=== PATIENT | female | born 1950 | race Caucasian/White ===

== ENCOUNTER 2025-02-01 11:09 | Outpatient (AMB) | payer MEDICARE, OTHER, SELFPAY ==
--- NOTE | 2025-02-01 11:13 | MHC.OFFVIS ---
Vital Signs 02/01/25 11:14 Height 4 ft 11 in Intake Visit Reasons: 6 mnts BFT Allergies acetaminophen (From Percocet) Allergy (Unknown, Verified 02/01/25 11:17) Unknown oxycodone (From Percocet) Allergy (Unknown, Verified 02/01/25 11:17) Unknown Penicillins Allergy (Unknown, Verified 02/01/25 11:17) Unknown Medication List - Last Reconciled 02/01/25 by Aline Najera CNP anastrozole 1 mg PO DAILY bupropion HCl XL 300 mg PO DAILY fluoxetine 40 mg PO DAILY fluticasone furoate-vilanterol 100-25 mcg/dose (Breo Ellipta) 1 ea inhalation DAILY levothyroxine 50 mcg PO DAILY lorazepam 0.5 mg PO BEDTIME PRN montelukast 10 mg PO DAILY propranolol ER 120 mg PO DAILY rosuvastatin 10 mg PO DAILY spironolactone 50 mg PO DAILY topiramate 50 mg PO BID HPI Comments Details: 74-year-old LH woman with benign essential familial tremor moderately impacting her hands head and speech. Tremor was stable with topiramate, some days better than others. She was able to write out checks with her left hand. She still had some trouble holding cup of liquid steady with left hand. Otherwise, no trouble eating, drinking, or swallowing. She had a fall on 01/29/2025 when she woke up to use the bathroom. She had some lightheaded dizziness and felt like feet got tied up. She fell forward into bathroom and face hit bathmat. No LOC. She has been having some headaches and dizziness on and off since that seem to be improving. No headache or dizziness at this time. Some mild nausea Thursday night and Thursday. She was using walking stick for longer distances. No other falls. Sleep was okay. [facility] Medical History (Updated 02/01/25 @ 11:28 by Aline Najera CNP) Familial tremor Family History (Updated 02/01/25 @ 11:17 by Aline Najera CNP) Daughter Tremor Daughter Tremor Review of Systems Const Denies chills, Denies daytime sleepiness, Denies difficulty sleeping, Denies fatigue, Denies fever(s), Denies frequent falls, Denies headache(s), Denies increased appetite, Denies poor appetite, Denies snoring, Denies weakness, Denies weight gain and Denies weight loss Eyes Denies loss of vision ENT Denies vertigo, Denies dizziness and Denies headache(s) Card Denies chest pain at rest, Denies chest pain with activity, Denies syncope, Denies leg edema and Denies palpitations Resp Denies snoring GI Denies constipation, Denies heartburn, Denies diarrhea and Denies nausea Denies urinary frequency, Denies urinary incontinence and Denies urinary urgency Musc Denies abnormal gait, Denies numbness and Denies tingling Skin/Breast Denies dry skin and Denies rash Neuro Denies abnormal gait, Denies vertigo, Denies dizziness, Denies syncope, Denies frequent falls, Denies headache(s), Denies lack of coordination, Denies loss of vision, Denies memory loss, Denies numbness, Denies restless legs, Denies seizure-like activity, Denies tingling, Denies paresthesias, Reports tremor(s) and Denies weakness Psych Denies anxiety, Denies depression, Denies auditory hallucinations, Denies memory loss, Denies visual hallucinations and Denies suicidal ideation Endo Denies fatigue and Denies palpitations Physical Exam Const Other: General Appearance:? normal, in no acute distress. Skin:? Slight bruising to nose and R upper arm. Heart:? S1, S2 normal, no murmurs. Lungs:? clear anteriorly and posteriorly. Extremities:? no edema. Psych:? alert, oriented, cognitive function intact, cooperative with exam. Neuro Other: Mental Status:?Normal attention, orientation, memory and affect.? Cranial Nerves:?Pupils are equal, round and reactive to light. External occular muscles are intact. Visual [place] are full. Face is symmetrical. Facial sensations are normal. Tongue is midline. Palate elevates symmetrically. Shoulder shrugging is normal. Hearing to bedside conversation is normal. Motor Examination:?DTRs trace. Sensory Exam:?....? Coordination:?No ataxia,?no titubation.? Gait Exam: With walking stick. Cerebellar Signs:?[id number] with tremor. Extrapyramidal System:?No tremor, rigidity with normal facial expressions.? Pronator Drift:?Not present.? Involuntary Movements:?Moderate bilateral hand (L > R) and some head tremor. Speech:?Mild to moderate speech tremor. Assessment & Plan Assessment & Plan (1) Familial tremor: Code(s): G25.0 - Essential tremor Category: Medical Plan: Continue topiramate 50mg 1 tablet twice a day (2) Concussion: Code(s): S06.0XAA - Concussion with loss of consciousness status unknown, initial encounter Category: Medical Qualifiers: Encounter type: initial encounter Loss of consciousness presence/duration: without LOC Qualified Code(s): S06.0X0A - Concussion without loss of consciousness, initial encounter Plan: Reviewed testing ordered. Plan Meds tried: propranolol, primidone, topiramate Orders: Orders CT head/brain wo IV con Today S06.0X0A - Concussion without loss of consciousness, initial encounter Medications: New topiramate 50 mg PO BID 180 tabs 1RF 90 days Discontinued topiramate Discontinued Reason: Order 50 mg PO BID Coding Level of Care Code Est Pt Level 4 (91965) Diagnoses Familial tremor G25.0 Concussion without loss of consciousness, initial encounter S06.0X0A Encounter type: initial encounter Loss of consciousness presence/duration: without LOC
--- OUTSIDE RECORDS SUMMARY | 2025-02-01 12:11 | XMS_ITS | Clinical Summary ---
Author Organization [facility] Address [address] [place] [phone] Phone Care Team Providers Care Security Public Safety Officer Name Role Phone Lola Mendez MD Primary Care Provider [phone] Social History Tobacco Use Types Packs/Day Years Used Date Smoking Tobacco: Never Assessed Comments Unknown Sex and Gender Information Value Date Recorded Sex Assigned at Female 07/15/2024 1:38 PM EST Legal Sex Female 4:49 PM EDT Gender Identity Female 07/15/2024 1:38 PM EST Sexual Orientation Straight 07/15/2024 1: 38 PM EST Plan of Treatment Health Maintenance Due Date Last Done Comments Breast Cancer Screening 02/20/2023 02/20/2021 Cholesterol Screening (Lipid Panel) 02/12/2024 Colorectal Cancer Screening: Colonoscopy 02/12/2024 Falls Risk Assessment 02/12/2024 Hepatitis C Screening 02/12/2024 Medicare Annual Wellness Visit 02/12/2024 Osteoporosis Screening (Bone Density Screening) 02/12/2024 01/29/2010 Social Influencers of Health Screening 02/12/2024 Depression Screening 07/13/2024 Hypertension/CHF/CAD Annual BMP Blood Test 08/26/2024 COVID-19 Vaccine (9 - Pfizer risk 2023- season) 2024 03/22/2024, 11/10/2023, 03/03/2023, Additional history exists Influenza Vaccine (#1) 2025 , 04/15/2023, 03/31/2022, Additional history exists DTaP,Tdap,and Td Vaccines (3 - Td or Tdap) 10/09/2025 10/10/2015, 06/28/2008 Pneumococcal Vaccine: 50+ Years Completed 10/14/2017, 05/19/2016, 08/13/2012 RSV Immunization Adult Patients Completed 03/03/2023 Zoster Vaccines Completed 01/18/2024, 10/13, 05/13/2013 HIB Vaccines Aged Out No longer eligi ble based on patient's age to complete this topic HPV Vaccines Aged Out No longer eligi ble based on patient's age to complete this topic Hepatitis A Vaccines Aged Out No long er eligible based on patient's age to complete this topic Hepatitis B Vaccines Aged Out No long er eligible based on patient's age to complete this topic IPV Vaccines Aged Out No longer eligi ble based on patient's age to complete this topic MMR Vaccines Aged Out No longer eligi ble based on patient's age to complete this topic Meningococcal ACWY Vaccine Aged Out N o longer eligible based on patient's age to complete this topic Meningococcal B Vaccine Aged Out No l onger eligible based on patient's age to complete this topic RSV Immunization Patients Under 20 months Aged Out No longer eligible based on patient's age to complete this topic Varicella Vaccines Aged Out No longer eligible based on patient's age to complete this topic Insurance [facility] MEDICARE Care Teams Security Public Safety Officer Relationship Specialty Start Date End Date Lola Mendez MD [id number] [phone] PCP - General Internal Medicine 07/15/24
--- OUTSIDE RECORDS SUMMARY | 2025-02-01 12:12 | XMS_ITS | Data Portability ---
Author Organization [facility], Main Office Address [address] [place] [address] Care Team Providers Care Drill Foreman Name Role Phone GEOVANNY MUELLER Assembly Machine Feeder [phone] JAVIER STILES Orthopedic Surgeon [employer] CHAVEZ Pattern Cutter BRENDA HOOK Urologist [facility] Breast Surgeon [facility] Hematology/Oncolo gy LOLA MENDEZ Primary Care Provider Assessment Encounter Date Assessment Date Assessment LastModified by Organization Details LastModified Time 04/13/2024 04/13/2024 Patient is at lo w risk for cardiopulmonary complications with planned procedure based on comorbidities, good exertional tolerance and overall procedure risk. Patient advised to avoid aspirin for 14 days and NSAIDS for 7 days prior. May proceed to scheduled surgery as planned. [email or web address] Not available 04/13/2024 11:06:13 Plan of Treatment Reminders Order Date Submit Date Provider Last Modified By Organization Details Last Modified Time Details Appointments [id number] 2024 01:30P Ibeth MENDEZ MD Not available Not available Not available Lab CBC w/ auto diff 2023 [facility] (Centralized Electronic Ordering - All Locations), Patient Can Go To The Location Of Their Choice, [id number] 04/14/2024 06:09:16 BMP, serum or plasma 2023 [facility] (Centralized Electronic Ordering - All Locations), Patient Can Go To The Location Of Their Choice, [id number] 04/14/2024 06:09:18 TSH + free T4, serum 2023 024 [facility] (Centralized Electronic Ordering - All Locations), Patient Can Go To The Location Of Their Choice, [id number] 04/14/2024 06:09:16 lipid panel, serum 2023 024 [facility], [address], [address], [place], [address], 08/14/2023 20:37:52 ALT (quynh jimenez), serum or plasma 2023 024 [facility], [address], [address], [place], [address], 08/14/2023 20:37:49 lipid panel, serum 2022 023 [facility], [address], [address], [place], [address], 02/12/2023 20:53:04 BMP, serum or plasma 2022 023 [facility], [address], [address], [place], [address], 08/14/2023 13:59:15 Referral physic al therap ist referr al 2024 025 [email or web address], [address] [place], [address], 09/15/2024 11:11:58 physic al therap ist referr al 2023 024 [facility], [address], [place], [address], 03/15/2024 10:31:27 psychi atrist referr al - Medica tion [place] tation with Mal Liu MD 2023 024 cheko Liu MD, [address] [place], [address], 04/07/2024 09:51:10 Procedures None record ed. Surgeries None record ed. Imaging None record ed. Medication Orders meloxi cam 15 mg tablet 2023 024 [id number], [address], [place], [id number], 02/15/2024 14:02:03 Symbic ort 160 mcg-4. 5 mcg/ac tuatio n HFA aeroso l inhale r 2023 024 [facility][id number], [address], [place], [id number], 09/11/2023 09:42:16 loraze kyle 0.5 mg tablet 2023 024 [facility] #[id number], [address], [place], [id number], 08/14/2023 13:56:28 ProAir HFA 90 mcg/ac tuatio n aeroso l inhale r 2022 023 [facility] #[id number], [address], [place], [id number], 02/12/2023 14:06:07 Patient TargetsNo targets recorded. Patient Instructions Encounter Date Encounter Id Patient Instructions Last Modified By Organization Details Last Modified Time 02/12/2023 [id number] well visit, over 65: care instructions Not available 02/12/2023 14:05:59 preventing falls : care instructions Not available 02/12/2023 14:05:58 medical record request* Not available 02/17/2023 11:35:31 02/15/2024 [id number] high cholesterol : care instructions Not available 02/15/2024 13:33:21 well visit, over 65: care instructions Not available 02/15/2024 13:33:21 preventing falls : care instructions Not available 02/15/2024 13:33:20 medical record request* Not available 02/16/2024 14:18:38 learning about healthy weight nbarrows Not available 02/19/2024 13:32:18 learning about asthma Not available 02/15/2024 13:33:21 high blood pressure: care instructions Not available 02/15/2024 13:33:20 learning about high blood pressure Not available 02/15/2024 13:33:21 hypothyroidism: care instructions Not available 02/15/2024 13:33:20 body mass index: care instructions Not available 02/15/2024 14:16:06 08/18/2024 [id number] learning about asthma Not available 08/18/2024 13:50:22 high cholesterol : care instructions Not available 08/18/2024 13:50:22 high blood pressure: care instructions Not available 08/18/2024 13:50:23 learning about high blood pressure Not available 08/18/2024 13:50:23 hypothyroidism: care instructions Not available 08/18/2024 13:50:23 Reason for Referral Physical Therapist Referral for At increased risk for falls Referring Physician: Lola Mendez [facility], Encounter Date: 02/15/2024 Psychiatrist Referral for Ma malka depression in remission Medication Consultation Medication consultation with Mal Liu MD Referring Physician: Lola Mendez [facility], Encounter Date: 02/15/2024 Physical Therapist Referral for At increased risk for falls Referring Physician: Lola Mendez [facility], Encounter Date: 08/18/2024 Results Created Date Observation Date Name Description Value Unit Range Abnormal Flag Note LastModifiedBy Organization Detail LastModifiedTime 02/13/20 23 02/12/2023 LIPID PANEL cholesterol, total 262 mg/dL (<200) high Not Available [facility] ([facility] Ordering - All Locations) Patient Can Go To The Location Of Their Choice, 02/12/2023 20:53:04 02/13/2002/12/2023 LIPID PANEL triglyceride 120 mg/dL (<150) Not Available [facility] ([facility] Order[facility] - All Locations) Patient Can Go To The Location Of Their Choice, 02/12/2023 20:53:04 02/13/2002/12/2023 LIPID PANEL HDL chol 72 mg/dL (>39) Not Available [facility] (Centralized Electronic Ordering - All Locations) Patient Can Go To The Location Of Their Choice, 02/12/2023 20:53:04 02/13/2002/12/2023 LIPID PANEL LDL cholesterol, calculated 166 mg/dL (0-130 ) high Not Available [facility] (Centralized Electronic Ordering - All Locations) Patient Can Go To The Location Of Their Choice, 02/12/2023 20:53:04 02/13/2002/12/2023 LIPID PANEL non HDL cholesterol (calc) 190 mg/dL (<160) high Not Available [facility] (Centralized [facility] Ordering - All Locations) Patient Can Go To The Location Of Their Choice, 02/12/2023 20:53:04 08/14/1908/14/2023 BASIC METAB OLIC PANEL results Dupli angelic Order Not Available [facility] (Centralized Electronic Ordering - All Locations) Patient Can Go To The Location Of Their Choice, 08/14/2023 13:59:15 08/14/19 24 08/14/2023 ALT ALT 23 U/L (0-33) Not Available [facility] (Centralized Electronic Ordering - All Locations) Patient Can Go To The Location Of Their Choice, 08/14/2023 20:37:49 08/14/19 24 08/14/2023 BASIC METAB OLIC PANEL glucose 99 mg/dL (70-99 ) Not Available [facility] (Centralized Electronic Ordering - All Locations) Patient Can Go To The Location Of Their Choice, 08/14/2023 20:37:50 08/14/19 24 08/14/2023 BASIC METAB OLIC PANEL BUN 20 mg/dL (8-23) Not Available [facility] (Centralized Electronic Ordering - All Locations) Patient Can Go To The Location Of Their Choice, 08/14/2023 20:37:50 08/14/1908/14/2023 BASIC METAB OLIC PANEL creatinine 1.1 mg/dL (0.5-1 .0) high Not Available [facility] (Centralized Electronic Ordering - All Locations) Patient Can Go To The Location Of Their Choice, 08/14/2023 20:37:50 08/14/1908/14/2023 BASIC METAB OLIC PANEL sodium 139 mmol/ L (133-1 45) Not Available [facility] (Centralized Electronic Ordering - All Locations) Patient Can Go To The Location Of Their Choice, 08/14/2023 20:37:50 08/14/1908/14/2023 BASIC METAB OLIC PANEL potassium 4.9 mmol/ L (3.6-5 .2) Not Available [facility] ([facility]ized Electronic Ordering - All Locations) Patient Can Go To The Location Of Their Choice, 08/14/2023 20:37:50 08/14/1908/14/2023 BASIC METAB OLIC PANEL chloride 100 mmol/ L (98-10 7) Not Available [facility] (Centralized Electronic Ordering - All Locations) Patient Can Go To The Location Of Their Choice, 08/14/2023 20:37:50 08/14/1908/14/2023 BASIC METAB OLIC PANEL bicarbonate 30 mmol/ L (22-29 ) high Not Available [facility] (Centralized Electronic Ordering - All Locations) Patient Can Go To The Location Of Their Choice, 08/14/2023 20:37:50 08/14/1908/14/2023 BASIC METAB OLIC PANEL anion gap 9 (4-17) Not Available [facility] (Centralized Electronic Ordering - All Locations) Patient Can Go To The Location Of Their Choice, 08/14/2023 20:37:50 08/14/1908/14/2023 BASIC METAB OLIC PANEL calcium 9.7 mg/dL (8.6-1 0.5) Not Available [facility] (Centralized Electronic Ordering - All Locations) Patient Can Go To The Location Of Their Choice, 08/14/2023 20:37:50 08/14/1908/14/2023 BASIC METAB OLIC PANEL estimated GFR creatinine 55 mL/mi n/1.7 3_M2 Creat inine based estim ated maria del carmenme emerita hughes ation (eGFR ) in adult s is calcu lated using the Natio nal Kidne y Found ation recom manisha d 2020 CKD-E PI equat ion. Estim ates GFR from serum creat inine , age and sex. Not Available [facility] (Centralized Electronic Ordering - All Locations) Patient Can Go To The Location Of Their Choice, 08/14/2023 20:37:50 08/14/1908/14/2023 LIPID PANEL cholesterol, total 135 mg/dL (<200) Not Available [facility] ([facility] Ordering - All Locations) Patient Can Go To The Location Of Their Choice, 08/14/2023 20:37:51 08/14/1908/14/2023 LIPID PANEL triglyceride 67 mg/dL (<150) Not Available [facility] ([facility] Ordering - All Locations) Patient Can Go To The Location Of Their Choice, 08/14/2023 20:37:51 08/14/1908/14/2023 LIPID PANEL HDL chol 63 mg/dL (>39) Not Available [facility] ([facility]ized Electronic Ordering - All Locations) Patient Can Go To The Location Of Their Choice, 08/14/2023 20:37:51 08/14/1908/14/2023 LIPID PANEL LDL cholesterol, calculated 59 mg/dL (0-130 ) Not Available [facility] ([facility]ized Electronic Ordering - All Locations) Patient Can Go To The Location Of Their Choice, 08/14/2023 20:37:51 08/14/1908/14/2023 LIPID PANEL non HDL cholesterol (calc) 72 mg/dL (<160) Not Available [facility] ([facility] Ordering - All Locations) Patient Can Go To The Location Of Their Choice, 08/14/2023 20:37:51 08/25/1908/25/2023 BASIC METAB OLIC PANEL glucose 92 mg/dL (70-99 ) Not Available [facility] ([facility] Ordering - All Locations) Patient Can Go To The Location Of Their Choice, 08/25/2023 20:21:55 08/25/192024 BASIC METAB OLIC PANEL BUN 20 mg/dL (8-23) Not Available [facility] ([facility]ized Electronic Ordering - All Locations) Patient Can Go To The Location Of Their Choice, 08/25/2023 20:21:55 08/25/1908/25/2023 BASIC METAB OLIC PANEL creatinine 1.0 mg/dL (0.5-1 .0) Not Available [facility] ([facility]ized Electronic Ordering - All Locations) Patient Can Go To The Location Of Their Choice, 08/25/2023 20:21:55 08/25/1908/25/2023 BASIC METAB OLIC PANEL sodium 140 mmol/ L (133-1 45) Not Available [facility] (Centralized Electronic Ordering - All Locations) Patient Can Go To The Location Of Their Choice, 08/25/2023 20:21:55 08/25/1908/25/2023 BASIC METAB OLIC PANEL potassium 4.6 mmol/ L (3.6-5 .2) Not Available [facility] ([facility]ized Electronic Ordering - All Locations) Patient Can Go To The Location Of Their Choice, 08/25/2023 20:21:55 08/25/1908/25/2023 BASIC METAB OLIC PANEL chloride 100 mmol/ L (98-10 7) Not Available [facility] ([facility] Ordering - All Locations) Patient Can Go To The Location Of Their Choice, 08/25/2023 20:21:55 08/25/1908/25/2023 BASIC METAB OLIC PANEL bicarbonate 26 mmol/ L (22-29 ) Not Available [facility] ([facility]ized Electronic Ordering - All Locations) Patient Can Go To The Location Of Their Choice, 08/25/2023 20:21:55 08/25/1908/25/2023 BASIC METAB OLIC PANEL anion gap 14 (4-17) Not Available [facility] ([facility] Ordering - All Locations) Patient Can Go To The Location Of Their Choice, 08/25/2023 20:21:55 08/25/1908/25/2023 BASIC METAB OLIC PANEL calcium 9.7 mg/dL (8.6-1 0.5) Not Available [facility] ([facility] Ordering - All Locations) Patient Can Go To The Location Of Their Choice, [id number] 08/25/2023 20:21:55 08/25/1908/25/2023 BASIC METAB OLIC PANEL estimated GFR creatinine 62 mL/mi n/1.7 3_M2 Creat inine based estim ated glome rular filtr ation (eGFR ) in adult s is calcu lated using the Natio nal Kidne y Found ation recom manisha d 2020 CKD-E PI equat ion. Estim ates GFR from serum creat inine , age and sex. Not Available [facility] ([facility]ized Electronic Ordering - All Locations) Patient Can Go To The Location Of Their Choice, [id number] 08/25/2023 20:21:55 04/13/2004/13/2024 TSH+F REE T4 TSH 6.290 uIU/m L 0.450- 4.500 above high normal Not Available [facility] ([facility]) [address] [place], [address], 04/14/2024 06:09:15 04/13/2004/13/2024 TSH+F REE T4 T4,free(dire ct) 1.33 NG/dL 0.82-1 .77 normal Not Available [facility] ([facility]) [address] [place], [address], 04/14/2024 06:09:15 04/13/20 24 04/13/2024 CBC WITH DIFFE RENTI AL/PL ATELE T WBC 6.2 x10e3 /uL 3.4-10 .8 normal Not Available [facility] ([facility]) [address] [place], [address], 04/14/2024 06:09:16 04/13/2004/13/2024 CBC WITH DIFFE RENTI AL/PL ATELE T RBC 4.27 x10e6 /uL 3.77-5 .28 normal Not Available [facility] ([facility]) [address] [place], [address], 04/14/2024 06:09:16 04/13/2004/13/2024 CBC WITH DIFFE RENTI AL/PL ATELE T hemoglobin 13.4 g/dL 11.1-1 5.9 normal Not Available [facility] ([facility]) [address] [facility], [place], [address], 04/14/2024 06:09:16 04/13/20 24 04/13/2024 CBC WITH DIFFE RENTI AL/PL ATELE T hematocrit 41.3 % 34.0-4 6.6 normal Not Available [facility] ([facility]) [address] [facility], [place], [address], 04/14/2024 06:09:16 04/13/2004/13/2024 CBC WITH DIFFE RENTI AL/PL ATELE T MCV 97 fL 79-97 normal Not Available [facility] ([facility]) [address] [facility], [place], [address], 04/14/2024 06:09:16 04/13/2004/13/2024 CBC WITH DIFFE RENTI AL/PL ATELE T MCH 31.4 pg 26.6-3 3.0 normal Not Available [facility] ([facility]) [address] [place], [address], 04/14/2024 06:09:16 04/13/2004/13/2024 CBC WITH DIFFE RENTI AL/PL ATELE T MCHC 32.4 g/dL 31.5-3 5.7 normal Not Available [facility] ([facility]) [address] [place], [address], 04/14/2024 06:09:16 04/13/2004/13/2024 CBC WITH DIFFE RENTI AL/PL ATELE T RDW 12.5 % 11.7-1 5.4 Not Available [facility] ([facility]) [address] [place], [address], 04/14/2024 06:09:16 04/13/2004/13/2024 CBC WITH DIFFE RENTI AL/PL ATELE T platelets 315 x10e3 /uL 150-45 0 normal Not Available [facility] ([facility]) [address] [facility], [place], [address], 04/14/2024 06:09:16 04/13/20 24 04/13/2024 CBC WITH DIFFE RENTI AL/PL ATELE T neutrophils 56 % not estab. normal Not Available [facility] ([facility]) [address] [facility], [place], [address], 04/14/2024 06:09:16 04/13/2004/13/2024 CBC WITH DIFFE RENTI AL/PL ATELE T lymphs 29 % not estab. normal Not Available [facility] ([facility]) [address] [facility], [place], [address], 04/14/2024 06:09:16 04/13/20 24 04/13/2024 CBC WITH DIFFE RENTI AL/PL ATELE T monocytes 12 % not estab. normal Not Available [facility] ([facility]) [address] [facility], [place], [address], 04/14/2024 06:09:16 04/13/20 24 04/13/2024 CBC WITH DIFFE RENTI AL/PL ATELE T eos 2 % not estab. normal Not Available [facility] ([facility]) [address] [facility], [place], [address], 04/14/2024 06:09:16 04/13/20 24 04/13/2024 CBC WITH DIFFE RENTI AL/PL ATELE T basos 1 % not estab. normal Not Available [facility] ([facility]) [address] [facility], [place], [address], 04/14/2024 06:09:16 04/13/20 24 04/13/2024 CBC WITH DIFFE RENTI AL/PL ATELE T immature cells FINANCIAL SYSTEMS ANALYST Not Available [facility] ([facility]) [address] [facility], [place], [address], 04/14/2024 06:09:16 04/13/2004/13/2024 CBC WITH DIFFE RENTI AL/PL ATELE T neutrophils (absolute) 3.5 x10e3 /uL 1.4-7. 0 normal Not Available [facility] ([facility]) [address] [facility], [place], [address], 04/14/2024 06:09:16 04/13/20 24 04/13/2024 CBC WITH DIFFE RENTI AL/PL ATELE T lymphs (absolute) 1.8 x10e3 /uL 0.7-3. 1 normal Not Available [facility] ([facility]) [address] [facility], [place], [address], 04/14/2024 06:09:16 04/13/20 24 04/13/2024 CBC WITH DIFFE RENTI AL/PL ATELE T monocytes(ab solute) 0.7 x10e3 /uL 0.1-0. 9 normal Not Available [facility] ([facility]) [address] [facility], [place], [address], 04/14/2024 06:09:16 04/13/20 24 04/13/2024 CBC WITH DIFFE RENTI AL/PL ATELE T eos (absolute) 0.1 x10e3 /uL 0.0-0. 4 normal Not Available [facility] ([facility]) [address] [facility], [place], [address], 04/14/2024 06:09:16 04/13/20 24 04/13/2024 CBC WITH DIFFE RENTI AL/PL ATELE T baso (absolute) 0.1 x10e3 /uL 0.0-0. 2 normal Not Available [facility] ([facility]) [address] [place], [address], 04/14/2024 06:09:16 04/13/2004/13/2024 CBC WITH DIFFE RENTI AL/PL ATELE T immature granulocytes 0 % not estab. Not Available [facility] ([facility]) [address] [facility], [place], [address], 04/14/2024 06:09:16 04/13/20 24 04/13/2024 CBC WITH DIFFE RENTI AL/PL ATELE T immature grans (abs) 0.0 x10e3 /uL 0.0-0. 1 Not Available [facility] ([facility]) [address] [facility], [place], [address], 04/14/2024 06:09:16 04/13/2004/13/2024 CBC WITH DIFFE RENTI AL/PL ATELE T NRBC FINANCIAL SYSTEMS ANALYST Not Available [facility] ([facility]) [address] [facility], [place], [address], 04/14/2024 06:09:16 04/13/2004/13/2024 CBC WITH DIFFE RENTI AL/PL ATELE T hematology comments: FINANCIAL SYSTEMS ANALYST Not Available [facility] ([facility]) [address] [facility], [place], [address], 04/14/2024 06:09:16 04/13/20 24 04/13/2024 BASIC METAB OLIC PANEL (8) glucose 98 mg/dL 70-99 normal Not Available [facility] ([facility]) [address] [facility], [place], [address], 04/14/2024 06:09:18 04/13/20 24 04/13/2024 BASIC METAB OLIC PANEL (8) BUN 18 mg/dL 8-27 normal Not Available [facility] ([facility]) [address] [facility], [place], [address], 04/14/2024 06:09:18 04/13/20 24 04/13/2024 BASIC METAB OLIC PANEL (8) creatinine 1.25 mg/dL 0.57-1 .00 above high normal Not Available [facility] ([facility]) [address], [place], [address], 04/14/2024 06:09:18 04/13/2004/13/2024 BASIC METAB OLIC PANEL (8) eGFR 46 mL/mi n/1.7 3 >59 below low normal Not Available [facility] ([facility]) [address] [place], [address], 04/14/2024 06:09:18 04/13/2004/13/2024 BASIC METAB OLIC PANEL (8) BUN/creatini ne ratio 14 12-28 normal Not Available [facility] ([facility]) [address] [facility] [place], [address], 04/14/2024 06:09:18 04/13/20 24 04/13/2024 BASIC METAB OLIC PANEL (8) sodium 142 mmol/ L 134-14 4 normal Not Available [facility] ([facility]) [address] [facility] [place], [address], 04/14/2024 06:09:18 04/13/2004/13/2024 BASIC METAB OLIC PANEL (8) potassium 4.1 mmol/ L 3.5-5. 2 normal Not Available [facility] ([facility]) [address] [facility] [place], [address], 04/14/2024 06:09:18 04/13/2004/13/2024 BASIC METAB OLIC PANEL (8) chloride 108 mmol/ L 96-106 above high normal Not Available [facility] ([facility]) [address] [facility] [place], [address], 04/14/2024 06:09:18 04/13/2004/13/2024 BASIC METAB OLIC PANEL (8) carbon dioxide, total 20 mmol/ L 20-29 normal Not Available [facility] ([facility] [facility]) [address] [facility] [place], [address], 04/14/2024 06:09:18 04/13/20 24 04/13/2024 BASIC METAB OLIC PANEL (8) calcium 9.3 mg/dL 8.7-10 .3 normal Not Available [facility] ([facility]) [address] [facility], [place], [address], 04/14/2024 06:09:18 10/26/19 25 10/26/2024 TSH+F REE T4 TSH 3.300 uIU/m L 0.450- 4.500 normal Not Available [facility] ([facility]) [address] [facility], [place], [address], 10/26/2024 08:11:24 10/26/19 25 10/26/2024 TSH+F REE T4 T4,free(dire ct) 1.54 NG/dL 0.82-1 .77 normal Not Available [facility] ([facility]) [address] [facility], [place], [address], 10/26/2024 08:11:24 02/18/20 23 11/24/2022 DEXA, axial skele ton No observ ation record ed. Not Available 02/18 07:40:11 08/30/19 25 08/26/2024 CT, abdom en + pelvi s, w/o contr ast See Note [facility] , a member of [facility] t Name: NATHAN DUKE Date of : 1949 Reason for Exam: CALCUL US OF KIDNEY Exam Date: 2024 [id number] EST Report Status : Final Orderi ng Provid er: JOIE GOFF T PCP: CHRISTI HAWLEY INDICA TION: Nephro lithia sis TECHNI QUE: CT scan of the abdome n and pelvis obtain ed utiliz ing the renal stone protoc ol theref ore no intrav enous or oral contra st was admini stered . Scanne r: Elixr peed 64 slice VCT Dose reduct ion techni que: ASIR (Adapt kay statis tical iterat kay recons tructi on) and/or AEC (autom ated exposu re contro l) Dose: total exam DLP 1014 mGY per cm COMPAR REID: No prior study availa ble for compar reid. FINDIN GS: Lung bases are clear. Bony struct ures demons trate degene rative and scolio tic change s. Liver, spleen , pancre as and adrena l glands are normal . Gallbl adder is surgic ally absent . Right kidney is normal in size and shape. Scatte red 1 mm calcif icatio ns may repres ent nephro lithia sis and/or medull zaid calcif icatio ns. Left kidney is normal in size and shape. Scatte red 1 mm calcif icatio ns consis tent with nephro lithia sis and/or medull zaid calcif icatio ns. Multip le calcif icatio ns are noted on the left side. The unopac ified stomac h, small bowel and large bowel are grossl y unrema rkable . Termin al ileum unrema rkable . Append ix not well visual ized. No inflam matory change s in the right lower quadra nt. No free air, free fluid or adenop athy. Urinar y bladde r is decomp ressed . Uterus unrema rkable . No adnexa l masses . Abdomi nal aorta normal in course and calibe r. No retrop eriton eal lympha denopa thy IMPRES CHHAYA: Scatte red bilate ral 1 mm renal stones and/or medull zaid nephro calcin [place]. [place]. [id number], [id number], [id number] ------ -- FINAL REPORT ------ -- Dictat ed By: Edmond Mendez Dictat ed Date: 2024 14:16 ET Assign ed Physic magalys: Edmond Mendez Review ed and Electr onical ly Signed By: Edmond Mendez Signed Date: 2024 14:31 ET Workst ation ID: [id number] Transc ribed By: Self Edit Transc ribed Date: 2024 14:[address], [address], 08/30/2024 14:46:59 Result Notes Documentation Provider Name and Address Organization Details Recorded Time Ct, Abdomen + Pelvis, W/o Contrast : See Note [facility], a member of [employer] Patient Name: SELINA DUKE Date of : 1950 Reason for Exam: CALCULUS OF KIDNEY Exam Date: 08/26/2024 [id number] EST Report Status: Final Ordering Provider: JELLY HUTSON PCP: LOLA MENDEZ INDICATION: Nephrolithiasis TECHNIQUE: CT scan of the abdomen and pelvis obtained utilizing the renal stone protocol therefore no intravenous or oral contrast was administered. Scanner: ElixrpeAdMoment 64 slice VCT Dose reduction technique: ASIR (Adaptive statistical iterative reconstruction) and/or AEC (automated exposure control) Dose: total exam DLP 1014 mGY per cm COMPARISON: No prior study available for comparison. FINDINGS: Lung bases are clear. Bony structures demonstrate degenerative and scoliotic changes. Liver, spleen, pancreas and adrenal glands are normal. Gallbladder is surgically absent. Right kidney is normal in size and shape. Scattered 1 mm calcifications may represent nephrolithiasis and/or medullary calcifications. Left kidney is normal in size and shape. Scattered 1 mm calcifications consistent with nephrolithiasis and/or medullary calcifications. Multiple calcifications are noted on the left side. The unopacified stomach, small bowel and large bowel are grossly unremarkable. Terminal ileum unremarkable. Appendix not well visualized. No inflammatory changes in the right lower quadrant. No free air, free fluid or adenopathy. Urinary bladder is decompressed. Uterus unremarkable. No adnexal masses. Abdominal aorta normal in course and caliber. No retroperitoneal lymphadenopathy IMPRESSION: Scattered bilateral 1 mm renal stones and/or medullary nephrocalcinosis. No hydronephrosis. 76432, G9637, G9551 -------- FINAL REPORT -------- Dictated By: Spencer Mendez Dictated Date: 08/30/2024 14:16 ET Assigned Physician: Spencer Mendez Reviewed and Electronically Signed By: Spencer Mendez Signed Date: 08/30/2024 14:31 ET Workstation ID: [id number] Transcribed By: Self Edit Transcribed Date: 08/30/2024 14:16 ET LOLA MENDEZ MD [address] [address], [place], [address], [facility] 08/30/2024 14:46:59 Problems Name Problem SNOMED Code Status Onset Date Resolution Date Notes Provider Name and Address Organization Details Recorded Time Hyperten sive disorder 18226760 Completed 06/18/2016 Brielle laguerre [facility] 6 10:37:34 Depressi ve disorder 23771385 Completed 06/18/2016 Sharon laguerre [facility] 6 10:06:35 Environm ental allergy 984925460 Completed 06/18/2016 [facility] 6 10:06:51 Single major depressi ve episode, in full remissio n Active Not Available [facility] 0 14:14:35 Skin lesion 35764282 Completed 06/18/2016 Sharon laguerre [facility] 6 10:06:42 Lacerati on - injury 543619353 Completed 06/18/2016 Sharon laguerre [facility] 6 10:06:28 Scalp lacerati on 410207453 Completed 06/18/2016 Sharon laguerre [facility] 6 10:07:03 Removal of chris Completed 06/18/2016 Sharon laguerre [facility] 6 10:06:31 Body mass index 30+ - obesity 266436349 Completed 06/18/2016 Sharon laguerre [facility] 6 10:07:11 Malignan t tumor of breast 829972824 Active GERARD Robb [facility] 3 14:00:06 Administ ration of bacteria l and viral vaccine Completed 200701/31/2014 RECORDED 06/28/20 08 1:21PM BY JUANIS CAMPBELL, OFFICE VISIT Not Available [facility] 4 14:29:01 Administ ration of bacteria l and viral vaccine Completed 200702/20/2014 RECORDED 06/28/20 08 1:21PM BY JUANIS CAMPBELL, OFFICE VISIT Not Available [facility] 4 06:43:30 Influenz a vaccine needed 06326895895 06 Completed 200901/31/2014 DATE: 06/13/20 10; RECORDED 04/08/20 12 9:39AM BY RERE ROBB ON/ADDEN DUM Not Available [facility] 4 14:29:00 Administ ration of viral vaccine Completed 200901/31/2014 RECORDED 06/13/20 10 10:05AM BY BRIELLE Ramirez MD, OFFICE VISIT Not Available [facility] 4 14:29:01 Influenz a vaccine needed 32474426490 06 Completed 200902/20/2014 DATE: 06/13/20 10; RECORDED 04/08/20 12 9:39AM BY RERE ROBB ON/ADDEN DUM Not Available [facility] 4 06:43:30 Administ ration of viral vaccine Completed 200902/20/2014 RECORDED 06/13/20 10 10:05AM BY BRIELLE Ramirez MD, OFFICE VISIT Not Available [facility] 4 06:43:30 Screenin g for malignan t neoplasm of breast Completed 201101/31/2014 RECORDED 04/08/20 12 9:38AM BY RERE ROBB ON/ADDEN DUM [facility] 10:37[facility]10 Screenin g for malignan t neoplasm of colon Completed 201101/31/2014 RECORDED 04/08/20 12 9:39AM BY RERE ROBB ON/ADDEN DUM Brielle laguerre [facility] 6 10:37:14 Follow-u p encounte r Completed 201101/31/2014 RECORDED 04/08/20 12 9:39AM BY RERE ROBB ON/ADDEN DUM Not Available [facility] 4 14:29:00 General examinat ion of patient Completed 201101/31/2014 RECORDED 04/08/20 12 9:39AM BY RERE ROBB ON/ADDEN DUM Not Available [facility] 4 14:29:00 Well child 438635690 Completed 201101/31/2014 IMPRESSI ON: NO BLEEDING PAP TODAY; RECORDED 04/08/20 12 9:39AM BY RERE ROBB ON/ADDEN DUM Not Available [facility] 4 14:29:00 Knee pain Completed 201101/31/2014 IMPRESSI ON: LEFT KNEE PAIN. NEW, SOME EDEMA, PT TO SEE ORTHO, WE WILL SET UP APPT; RECORDED 04/08/20 12 9:38AM BY RERE ROBB ON/ADDEN DUM Not Available [facility] 4 14:29:01 Malaise and fatigue 673136244 Completed 201101/31/2014 IMPRESSI ON: MOOD WELL CONTROLL ED, CONTINUE MEDS; RECORDED 04/08/20 12 9:39AM BY RERE ROBB ON/ADDEN DUM Not Available [facility] 4 14:29:01 Open wound of finger 021870745 Completed 201101/31/2014 RECORDED 04/08/20 12 9:39AM BY RERE ROBB ON/ADDEN DUM Not Available [facility] 4 14:29:01 [facility] hyperten chhaya 69088222 Completed 201101/31/2014 IMPRESSI ON: WELL CONTROLL ED, CONTINUE MEDS; RECORDED 04/08/20 12 9:39AM BY RERE ROBB ON/ADDEN DUM GERARD Chapa [facility] 8 14:31:31 Follow-u p encounte r Completed 201102/20/2014 RECORDED 04/08/20 12 9:39AM BY RERE ROBB ON/ADDEN DUM Not Available [facility] 4 06:43:30 General examinat ion of patient Completed 201102/20/2014 RECORDED 04/08/20 12 9:39AM BY RERE ROBB ON/ADDEN DUM Not Available [facility] 4 06:43:30 Well child 385056523 Completed 201102/20/2014 IMPRESSI ON: NO BLEEDING PAP TODAY; RECORDED 04/08/20 12 9:39AM BY RERE ROBB ON/ADDEN DUM Not Available [facility] 4 06:43:30 Knee pain Completed 201102/20/2014 IMPRESSI ON: LEFT KNEE PAIN. NEW, SOME EDEMA, PT TO SEE ORTHO, WE WILL SET UP APPT; RECORDED 04/08/20 12 9:38AM BY RERE ROBB ON/ADDEN DUM Not Available [facility] 4 06:43:30 Malaise and fatigue 539535104 Completed 201102/20/2014 IMPRESSI ON: MOOD WELL CONTROLL ED, CONTINUE MEDS; RECORDED 04/08/20 12 9:39AM BY RERE ROBB ON/ADDEN DUM Not Available [facility] 4 06:43:30 Open wound of finger 476854700 Completed 201102/20/2014 RECORDED 04/08/20 12 9:39AM BY RERE ROBB ON/ADDEN DUM Not Available [facility] 4 06:43:30 Generali zed abdomina l pain 185937410 Completed 201201/31/2014 RECORDED 08/13/19 13 9:33AM BY RERE ROBB ON/ADDEN DUM Not Available [facility] 4 14:28:59 Active or passive immuniza tion Completed 201201/31/2014 RECORDED 08/13/19 13 10:14AM BY BRIELLE Ramirez MD, OFFICE VISIT Not Available [facility] 4 14:29:01 Generali zed abdomina l pain 279587587 Completed 201202/20/2014 RECORDED 08/13/19 13 9:33AM BY MARU ROBBATI ON/ADDEN DUM Not Available [facility] 4 06:43:30 Active or passive immuniza tion Completed 201202/20/2014 RECORDED 08/13/19 13 10:14AM BY BRIELLE Ramirez MD, OFFICE VISIT Not Available [facility] 4 06:43:30 Radiolog y result abnormal 700380449 Completed 201201/31/2014 RECORDED 04/15/20 13 9:40AM BY RASHIDA VALLEJO I ANNOTATI ON/ADDEN DUM Not Available [facility] 4 14:28:59 Patient status finding 938902145 Completed 201201/31/2014 RECORDED 04/15/20 13 9:40AM BY MARU DONNELLYATI ON/ADDEN DUM Sharon Aguirre [facility] 6 10:06:14 Neck pain 60108808 Completed 201201/31/2014 RECORDED 04/15/20 13 9:39AM BY MARU DONNELLYATI ON/ADDEN DUM Not Available [facility] 4 14:29:00 Disorder of bone and articula r cartilag e 692577267 Completed 201201/31/2014 RECORDED 04/15/20 13 9:39AM BY MARU DONNELLYATI ON/ADDEN DUM Not Available [facility] 4 14:29:00 Respirat ory finding 928378503 Completed 201201/31/2014 RECORDED 04/15/20 13 9:39AM BY MARU DONNELLYATI ON/ADDEN DUM Not Available [facility] 4 14:29:00 Difficul ty speaking Completed 201201/31/2014 RECORDED 04/15/20 13 9:39AM BY RASHIDA VALLEJO I ANNOTATI ON/ADDEN DUM Not Available [facility] 4 14:29:00 Benign neoplasm of skin 36246802 Completed 201201/31/2014 RECORDED 04/15/20 13 9:40AM BY RASHIDA VALLEJO I ANNOTATI ON/ADDEN DUM Not Available [facility] 4 14:29:01 Radiolog y result abnormal [id number] Completed 201202/20/2014 RECORDED 04/15/20 13 9:40AM BY RASHIDA VALLEJO I ANNOTATI ON/ADDEN DUM Not Available [facility] 4 06:43:30 Patient status finding 029609546 Completed 201202/20/2014 RECORDED 04/15/20 13 9:40AM BY RASHIDA VALLEJO I ANNOTATI ON/ADDEN DUM Sharon laguerre [facility] 6 10:06:14 Neck pain 00134558 Completed 201202/20/2014 RECORDED 04/15/20 13 9:39AM BY RASHIDA VALLEJO I ANNOTATI ON/ADDEN DUM Not Available [facility] 4 06:43:30 Disorder of bone and articula r cartilag e 550686314 Completed 201202/20/2014 RECORDED 04/15/20 13 9:39AM BY RASHIDA VALLEJO I ANNOTATI ON/ADDEN DUM Not Available [facility] 4 06:43:30 Respirat ory finding 277801772 Completed 201202/20/2014 RECORDED 04/15/20 13 9:39AM BY RASHIDA VALLEJO I ANNOTATI ON/ADDEN DUM Not Available [facility] 4 06:43:30 Difficul ty speaking Completed 201202/20/2014 RECORDED 04/15/20 13 9:39AM BY RASHIDA VALLEJO I ANNOTATI ON/ADDEN DUM Not Available [facility] 4 06:43:30 Benign neoplasm of skin 40860168 Completed 201202/20/2014 RECORDED 04/15/20 13 9:40AM BY RASHIDA VALLEJO I ANNOTATI ON/ADDEN DUM Not Available [facility] 4 06:43:30 Viral disease 21437550 Completed 201301/31/2014 RECORDED 08/19/19 14 11:09AM BY YOLANDA CAMPBELL [place], ANNOTATI ON/ADDEN DUM Not Available [facility] 4 14:29:01 Viral disease 84771459 Completed 201302/20/2014 RECORDED 08/19/19 14 11:09AM BY YOLANDA CAMPBELL [place], ANNOTATI ON/ADDEN DUM Not Available [facility] 4 06:43:30 Adult health examinat ion Completed 201301/31/2014 IMPRESSI ON: PT IS OVERDUE FOR HER MAMMOGRA M AND COLONOSC OPY, SHE WILL COME BACK FOR PAP IN SUMMER, PT WILL GO TO [place] COLONSOO PCY, NEEDS TO EXERCISE ; RECORDED 10/18/19 14 11:30AM BY RERE ROBB ON/ADDEN DUM Not Available [facility] 4 14:28:59 Adult health examinat ion Completed 201302/20/2014 IMPRESSI ON: PT IS OVERDUE FOR HER MAMMOGRA M AND COLONOSC OPY, SHE WILL COME BACK FOR PAP IN SUMMER, PT WILL GO TO [place] COLONSOO PCY, NEEDS TO EXERCISE ; RECORDED 10/18/19 14 11:30AM BY RERE ROBB ON/ADDEN DUM Not Available [facility] 4 06:43:30 Divertic ular disease 967830533 Completed 201304/11/2019 Brielle laguerre [facility] 9 13:32:34 Anxiety state 827351236 Active 2013 Not Available [facility] 0 14:14:35 Asthma 169952657 Completed 201304/11/2019 Brielle laguerre [facility] 9 13:36:15 Acute asthma 411515498 Completed 201306/18/2016 MALLY ON: CONTINUE STEROID INHALER; RECORDED 12/22/19 14 11:17AM BY JACQUELINE SHAW, OFFICE VISIT Sharon laguerre [facility] 6 10:06:57 Screenin g for malignan t neoplasm of breast Completed 201306/18/2016 RECORDED 12/22/19 14 11:17AM BY JACQUELINE SHAW, OFFICE VISIT Brielle laguerre [facility] 6 10:37:10 Carpal tunnel syndrome 76317212 Active 2013 Not Available [facility] 0 14:14:35 Screenin g for malignan t neoplasm of colon Completed 201306/18/2016 RECORDED 12/22/19 14 11:17AM BY JACQUELINE SHAW, OFFICE VISIT Brielle laguerre [facility] 6 10:37:14 Tremor 26038804 Active 2013 Not Available [facility] 0 14:14:35 [facility] hyperten chhaya 07400251 Active 2013 Not Available [facility] 0 14:14:35 Pure hypercho lesterol emia 073209060 Active 2013 Not Available [facility] 0 14:14:35 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 2013 Not Available [facility] 0 14:14:35 Single major depressi ve episode Completed 201305/20/2017 IMPRESSI ON: STRESSED WITH WROK IS ON MEDS BY PSYCHIAT RY, WILL TALK ABOUT INCREASI NG HER WELLBUTR IN, IS IN COUNSELI NG, 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; RECORDED 12/22/19 14 12:25PM BY BRIELLE Ramirez MD, OFFICE VISIT Brielle laguerre [facility] 7 12:59:30 Patient status finding [id number] Completed 201306/18/2016 RECORDED 12/22/19 14 11:33AM BY JACQUELINE SHAW, OFFICE VISIT Sharon laguerre [facility] 6 10:06:14 Obesity 539201182 Active 2013 Not Available [facility] 0 14:14:35 Osteoart hritis 367078710 Active 2013 Not Available [facility] 0 14:14:35 Urinary tract infectio us disease 03662380 Completed 201306/18/2016 RECORDED 12/22/19 14 11:17AM BY JACQUELINE SHAW, OFFICE VISIT Sharon laguerre, [facility] 6 10:06:48 Lesion of skin of face 30995845134 6 Completed 201704/11/2019 Brielle laguerre [facility] 9 13:32:31 Hyperten chhaya monitori ng status 074879878 Active 2021 [facility] - Active Phillip Lanza [facility] [address], [place], [address] , [facility] 2 10:21:01 History of SARS-CoV -2 [id number] 8920244 Active 2021 GERARD Cui, [facility] 2 13:33:06 History of calculus of kidney 141894242 Active 2024 LOLA MENDEZ MD [address], [place], [address] , [facility] 5 14:46:39 Problem Notes None recorded. 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 Jacqueline Shaw MA [facility] 02/12/2023 13:46:35 04/23/20 21 Cancer Surgery completed Jacqueline Shaw MA [facility] 01/10/2022 14:08:51 04/23/20 21 Mast radical completed Jacqueline Shaw MA [facility] 01/10/2022 14:09:21 04/23/20 21 Breast Surgery completed Jacqueline Shaw MA [facility] 07/31/2022 13:58:54 03/12/20 21 Breast Biopsy completed Shyla Campbell MA [facility] 11/19/2021 13:32:47 02/21/20 21 Most Recent Mammogram completed Clementina Segundo [facility] 02/21/2021 13:14:49 02/21/20 21 Mammogram screening completed Clementina Segundo [facility] 02/21/2021 13:14:57 12/09/19 20 Mini-Cog Test completed Jacqueline Shaw MA [facility] 12/09/2019 09:48:28 12/03/19 19 Orthopedic Surgery completed Jacqueline Shaw MA [facility] 04/11/2019 13:27:05 10/23/19 19 Mini-Cog Test completed Jacqueline Shaw MA [facility] 10/22/2018 13:12:30 08/05/19 19 Date of Last Colonoscopy completed Clementina Segundo [facility] 08/06/2018 10:30:04 08/05/19 19 Colonoscopy completed Clementina Segundo [facility] 08/06/2018 10:29:57 03/06/20 18 Lesion destruction completed Jacqueline Shaw MA [facility] 04/12/2018 12:56:44 10/14/19 18 Mini-Cog Test completed Yolanda pérez MA [facility] 10/13/2017 14:52:05 06/18/20 16 Fall Risk Assessment completed Sharon Aguirre MA [facility] 06/18/2016 10:15:48 06/18/20 16 Mini-Cog Test completed Sharon Aguirre MA [facility] 06/18/2016 10:07:42 06/18/20 16 Advanced Care Planning completed Brielle aldridge [facility] 06/18/2016 10:37:43 10/19/19 16 Suture/Staple removal completed Xochitl Mi PA-C [address], [place], [address], [facility] 10/19/2015 10:58:46 05/31/20 15 Fall Risk Assessment completed Jacqueline Shaw MA [facility] 05/31/2015 13:23:56 05/31/20 15 Mini-Cog Test completed Jacqueline Shaw MA [facility] 05/31/2015 13:25:07 01/30/20 11 Date of Last Pap Smear completed Yolanda pérez MA [facility] 10/13/2017 14:37:18 01/30/20 10 Most Recent Bone Density completed Yolanda pérez MA [facility] 10/13/2017 14:35:44 01/30/20 10 Dxa bone density harsha vrt fx completed Yolanda pérez MA [facility] 10/13/2017 14:35:39 03/10/19 85 Tubal Ligation completed Jacqueline Shaw MA [facility] 07/31/2022 13:58:54 03/10/19 85 Caesarean Section completed Jacqueline Shaw MA [facility] 07/31/2022 13:58:54 09/09/18 84 Caesarean Section completed Kodak Hyde MA [facility] 10/14/2022 14:52:44 04/12/19 58 Appendectomy completed Jacqueline Shaw MA [facility] 07/31/2022 13:58:54 Cholecystectomy completed Jacqueline Shaw MA [facility] 12/19/2020 12:59:21 Imaging Results None recorded. Procedure Notes None recorded. Medical Equipment None Reported. Allergies Allergen ID Allergen Name Allergen Category Reaction Reaction Severity Criticality Documentation Date Start Date Code Code System Note Provider Name and Address Organization Details Recorded Time 9631 fluticaso ne / salmetero l medicatio n other Not available Not available 01/24/20142013 11178 5 RxNorm GERARD Howard, [facility] 4 13:29:47 9632 Product containin g penicilli n (product) medicatio n hives Not available Not available 01/24/20142013 85352 8001 SNOMED Sharon laguerre, [facility] 8 14:29:01 9633 acetamino phen / oxycodone medicatio n hives respirato ry distress Not available Not available Not available 01/24/20142013 02701 3 RxNorm [facility] 8 14:28:58 Medications Name Sig Start Date Stop Date Status Note LastModified by Organization Details LastModified Time Prescript ion - Clarifica tion 06/18 completed [employer] Not Available Not Available Not Available bupropion hydrochlo ride er (xl) 150 mg tb24 12/08 completed Not Available Not Available Not Available pulmicort flexhaler 180 mcg/act aepb 04/17 completed Not Available Not Available Not Available fluoxetin e 40 mg capsule TAKE 1 CAPSULE BY MOUTH DAILY active Not Available Not Available No t Available silver sulfadiaz ine 1 % topical cream QD 02/05 completed RECORDED 02/19/20 07 3:33PM BY ILSA Lara, JUSTINA, MEDICATI ON AUTO-MICHELE CTIVATIO N; Not Available Not Available Not Available anastrozo le 1 mg tablet TAKE 1 TABLET BY MOUTH DAILY active Not Available Not Available No t Available primidone 50 mg tablet Take 0.5 tablets every day by oral route for 30 days. 12/17 completed Not Available Not Available Not Available bupropion HCl SR 150 mg tablet,12 hr sustained -release Take 1 tablet every day by oral route for 90 days. 12/17 completed Not Available Not Available Not Available potassium chloride ER 10 mEq capsule,e xtended release TAKE 2 CAPSULES BY MOUTH EVERY DAY 10/23 completed Not Available Not Available Not Available acetamino phen 325 mg tablet TAKE 2 TABLETS BY MOUTH EVERY 4 HOURS NEEDED FOR PAIN. DO NOT EXCEED 4000 MG ER DAY active Not Available Not Available No t Available nabumeton e 750 mg tablet BID active RECORDED 01/12/20 10 10:26AM BY BRIELLE Ramirez MD, ANNOTATI ON/ADDSHANE DUM;DR BAJWA Not Available Not Available Not Available clindamyc in HCl 300 mg capsule TAKE 2 CAPSULES BY MOUTH 30 MINUTES PRIOR TO APPOINTM ENT active Not Available Not Available No t Available Vitamin C 500 mg tablet Take 1 tablet every day by oral route as directed . active Not Available Not Available No t Available Potassium Chloride ER 10 mEq tablet,ex tended release QD 09/13 completed RECORDED 09/14/19 09 1:57PM BY BRIELLE Ramirez MD, REFILL REQUEST; THIS ORDER DISCONTI NUED PER MEDI-SPA N. Not Available Not Available Not Available meloxicam 15 mg tablet TAKE 1 TABLET BY MOUTH EVERY DAY NEEDED FOR PAIN active Not Available Not Available No t Available prednison e 20 mg tablet DAILY 08/18 completed RECORDED 08/19/19 14 11:07AM BY KODAK CLEMONS MD, MEDICATI ON AUTO-MICHELE CTIVATIO N; Not Available Not Available Not Available dexametha sone 6 mg tablet TAKE 1 TABLET BY MOUTH EVERY DAY FOR 10 DAYS 07/31 completed Not Available Not Available Not Available lidocaine 4 % topical cream 07/11 completed Not Available Not Available Not Available Advair Diskus 100 mcg-50 mcg/dose powder for inhalatio n BID 09/16 completed RECORDED 09/17/19 11 8:50AM BY JACQUELINE SHAW, OFFICE VISIT; Not Available Not Available Not Available topiramat e 25 mg tablet TAKE 1 TABLET BY MOUTH TWICE DAILY 02/14 completed Not Available Not Available Not Available Zometa 4 mg intraveno us powder for solution Inject as needed by intraven ous route. active gets an infusion every 6 months for her Bones Not Available Not Available Not Available potassium chloride ER 10 mEq tablet,ex tended release Take 2 tablets every day by oral route. 04/12 completed Not Available Not Available Not Available ciproflox acin 250 mg tablet BID 08/31 completed RECORDED 08/31/19 14 7:27AM BY STEVE MENDOZA, MEDICATI ON AUTO-MICHELE CTIVATIO N; Not Available Not Available Not Available tramadol 50 mg tablet 04/11 completed Not Available Not Available Not Available levothyro xine 25 mcg tablet TAKE 1 TABLET BY MOUTH EVERY DAY DIRECTED 04/15 completed Not Available Not Available Not Available ketorolac 0.5 % eye drops 08/18 completed Not Available Not Available Not Available hydromorp sudha 2 mg tablet TAKE 1 TABLET BY MOUTH EVERY 4 HOURS NEEDED FOR MODERATE PAIN 02/12 completed Not Available Not Available Not Available lorazepam 0.5 mg tablet TAKE 1 TABLET BY MOUTH TWICE DAILY NEEDED active Not Available Not Available No t Available benzonata te 100 mg capsule TAKE 1 CAPSULE BY MOUTH THREE TIMES DAILY FOR 10 DAYS 07/31 completed Not Available Not Available Not Available levothyro xine 50 mcg tablet TAKE 1 TABLET BY MOUTH EVERY DAY DIRECTED active Not Available Not Available No t Available propranol ol ER 80 mg capsule,2 4 hr,extend ed release TAKE 1 CAPSULE BY MOUTH EVERY DAY 01/10 completed Not Available Not Available Not Available monteluka st 10 mg tablet TAKE 1 TABLET BY MOUTH EVERY DAY DIRECTED active Not Available Not Available No t Available hydrochlo rothiazid e 25 mg tablet TAKE 1 TABLET BY MOUTH EVERY DAY 10/22 completed Not Available Not Available Not Available propranol ol ER 120 mg capsule,2 4 hr,extend ed release TAKE 1 CAPSULE BY MOUTH EVERY DAY DIRECTED active Not Available Not Available No t Available albuterol sulfate HFA 90 mcg/actua tion aerosol inhaler Inhale 2 puffs every 4 hours by inhalati on route as needed for 30 days. active Not Available Not Available No t Available spironola ctone 50 mg tablet TAKE 1 TABLET BY MOUTH EVERY DAY DIRECTED active Not Available Not Available No t Available Inderal LA 60 mg capsule,e xtended release BID active RECORDED 01/07/20 07 8:49AM BY ILSA Lara NP, OFFICE VISIT;[facility] - DR SHAVONNE DOAN Not Available Not Available Not Available oxycodone 5 mg tablet TAKE 1 TABLET BY MOUTH EVERY 4 HOURS NEEDED FOR PAIN (DO NOT DRIVE WHILE ON THIS MEDICATI ON). 02/12 completed Not Available Not Available Not Available albuterol (refill) 90 mcg/actua tion aerosol inhaler 2 puffs Q 4 HRS PRN WHEEZING 06/18 completed RECORDED 10/18/19 14 11:59AM BY BRIELLE Ramirez MD, OFFICE VISIT; Not Available Not Available Not Available Vitamin D3 25 mcg (1,000 unit) capsule Take 1 capsule every day by oral route. active Not Available Not Available No t Available rosuvasta tin 10 mg tablet TAKE 1 TABLET BY MOUTH EVERY DAY active Not Available Not Available No t Available bupropion HCl XL 300 mg 24 hr tablet, extended release TAKE 1 TABLET BY MOUTH EVERY DAY 2024 active Not Available Not Available Not Avai lable bupropion HCl XL 150 mg 24 hr tablet, extended release TAKE 1 TABLET BY MOUTH EVERY DAY DIRECTED active Not Available Not Available No t Available topiramat e 50 mg tablet TAKE 1 TABLET BY MOUTH TWICE DAILY active Not Available Not Available No t Available Asmanex Twisthale r 220 mcg/actua tion(60 doses) breath activated inhalr BID 10/17 completed RECORDED 10/18/19 14 11:34AM BY JACQUELINE SHAW, OFFICE VISIT; Not Available Not Available Not Available Zostavax (PF) 19,400 unit/0.65 mL subcutane ous suspensio n KAREN X 1 04/16 completed RECORDED 06/22/20 13 5:08PM BY BRIELLE Ramirez MD, MEDICATI ON AUTO-MICHELE CTIVATIO N; Not Available Not Available Not Available Pulmicort Flexhaler 180 mcg/actua tion breath activated INHALE 2 PUFFS BY MOUTH TWICE DAILY DIRECTED 08/14 completed Not Available Not Available Not Available budesonid e-formote rol HFA 160 mcg-4.5 mcg/actua tion aerosol inhaler INHALE 2 PUFFS BY MOUTH TWICE DAILY active Not Available Not Available No t Available Alvesco 80 mcg/actua tion aerosol inhaler BID 12/13 completed RECORDED 12/14/19 13 10:20AM BY JACQUELINE SHAW, OFFICE VISIT; Not Available Not Available Not Available Alvesco 160 mcg/actua tion aerosol inhaler BID 10/17 completed RECORDED 10/18/19 14 11:34AM BY JACQUELINE SHAW, OFFICE VISIT; Not Available Not Available Not Available GaviLyte- G 236 gram-22.7 4 gram-6.74 gram-5.86 gram oral solution 02/14 completed Not Available Not Available Not Available Zyrtec 10 mg capsule Take 1 capsule every day by oral route. active Not Available Not Available No t Available Breo Ellipta 100 mcg-25 mcg/dose powder for inhalatio n INHALE 1 PUFF BY MOUTH EVERY DAY active Not Available Not Available No t Available PreserVis ion AREDS-2 250 mg-90 mg-40 mg-1 mg capsule Take 1 capsule twice a day by oral route. active Not Available Not Available No t Available Phosphoro us 250 mg tablet TAKE 1 TABLET BY MOUTH ONCE DAILY 02/12 completed Not Available Not Available Not Available Fluad Quad [id number] (65yr up)(PF) 60 mcg (15 mcg x 4)/0.5mL IM syringe ADM 0.5ML IM UTD 12/19 completed Not Available Not Available Not Available BinaxNOW COVID-19 Ag Self Test kit TEST DIRECTED TODAY 07/31 completed Not Available Not Available Not Available Paxlovid 300 mg (150 mg x 2)-100 mg tablets in a dose pack TAKE 3 TABLETS BY MOUTH TWICE DAILY FOR 5 DAYS 01/10 completed Not Available Not Available Not Available Vitals Date Recorded Heart rate Systolic And Diastolic Provider Name and Address Organization Details Last Updated DateTime 07/14/2024 49 /min 114/62 mm[Hg] Not Available [facility] 07/14/2024 10:20:03 Date Recorded Heart rate Systolic And Diastolic Provider Name and Address Organization Details Last Updated DateTime 07/16/2024 53 /min 116/64 mm[Hg] Not Available [facility] 16:25:06 Date Recorded Heart rate Systolic And Diastolic Provider Name and Address Organization Details Last Updated DateTime 07/19/2024 53 /min 116/63 mm[Hg] Not Available [facility] 07/19/2024 10:12:04 Date Recorded Heart rate Systolic And Diastolic Provider Name and Address Organization Details Last Updated DateTime 07/20/2023 55 /min 133/74 mm[Hg] Not Available [facility] 07/20/2023 15:21:03 Date Recorded Heart rate Systolic And Diastolic Provider Name and Address Organization Details Last Updated DateTime 07/23/2023 57 /min 143/83 mm[Hg] Not Available [facility] 07/23/2023 12:29:07 Date Recorded Heart rate Systolic And Diastolic Provider Name and Address Organization Details Last Updated DateTime 07/25/2024 49 /min 102/64 mm[Hg] Not Available [facility] 07/25/2024 16:00:02 Date Recorded Heart rate Systolic And Diastolic Provider Name and Address Organization Details Last Updated DateTime 07/26/2024 52 /min 105/64 mm[Hg] Not Available [facility] 07/26/2024 16:13:03 Date Recorded Heart rate Systolic And Diastolic Provider Name and Address Organization Details Last Updated DateTime 07/28/2023 52 /min 136/78 mm[Hg] Not Available [facility] 07/28/2023 15:39:14 Date Recorded Heart rate Systolic And Diastolic Provider Name and Address Organization Details Last Updated DateTime 07/29/2023 51 /min 110/71 mm[Hg] Not Available [facility] 07/29/2023 12:41:06 Date Recorded Heart rate Systolic And Diastolic Provider Name and Address Organization Details Last Updated DateTime 07/29/2024 52 /min 116/64 mm[Hg] Not Available [facility] 07/29/2024 17:30:04 Date Recorded Heart rate Systolic And Diastolic Provider Name and Address Organization Details Last Updated DateTime 07/30/2023 52 /min 126/70 mm[Hg] Not Available [facility] 07/30/2023 16:45:06 Date Recorded Heart rate Systolic And Diastolic Provider Name and Address Organization Details Last Updated DateTime 07/30/2024 53 /min 112/64 mm[Hg] Not Available [facility] 07/30/2024 15:58:03 Date Recorded Heart rate Systolic And Diastolic Provider Name and Address Organization Details Last Updated DateTime 07/31/2023 52 /min 110/56 mm[Hg] Not Available [facility] 07/31/2023 15:01:02 Date Recorded Heart rate Systolic And Diastolic Provider Name and Address Organization Details Last Updated DateTime 08/01/2023 51 /min 117/59 mm[Hg] Not Available [facility] 08/01/2023 13:22:04 Date Recorded Heart rate Systolic And Diastolic Provider Name and Address Organization Details Last Updated DateTime 08/01/2024 53 /min 122/66 mm[Hg] Not Available [facility] 08/01/2024 16:48:04 Date Recorded Heart rate Systolic And Diastolic Provider Name and Address Organization Details Last Updated DateTime 08/05/2024 55 /min 121/66 mm[Hg] Not Available [facility] 08/05/2024 16:46:03 Date Recorded Heart rate Systolic And Diastolic Provider Name and Address Organization Details Last Updated DateTime 08/07/2023 53 /min 123/61 mm[Hg] Not Available [facility] 08/07/2023 15:59:03 Date Recorded Heart rate Systolic And Diastolic Provider Name and Address Organization Details Last Updated DateTime 08/08/2024 52 /min 106/66 mm[Hg] Not Available [facility] 08/08/2024 16:20:04 Date Recorded Heart rate Systolic And Diastolic Provider Name and Address Organization Details Last Updated DateTime 08/10/2023 53 /min 153/66 mm[Hg] Not Available [facility] 08/10/2023 19:08:04 Date Recorded Heart rate Systolic And Diastolic Provider Name and Address Organization Details Last Updated DateTime 08/10/2024 53 /min 127/63 mm[Hg] Not Available [facility] 08/10/2024 10:47:03 Date Recorded Heart rate Systolic And Diastolic Provider Name and Address Organization Details Last Updated DateTime 08/11/2023 50 /min 117/66 mm[Hg] Not Available [facility] 08/11/2023 11:30:04 Date Recorded Heart rate Systolic And Diastolic Provider Name and Address Organization Details Last Updated DateTime 08/12/2024 52 /min 126/64 mm[Hg] Not Available [facility] 08/12/2024 10:55:06 Date Recorded Body height Body mass index (BMI) Body weight Heart rate Oxygen saturation Oxygen saturation in Arterial blood by Pulse oximetry Body temperature Systolic And Diastolic Provider Name and Address Organization Details Last Updated DateTime 152.4 cm 34.7 kg/m2 50018.6 5 g 57 /min 96 % 96 % 97.7 [degF] 103/65 mm[Hg] Shyla Campbell MA [facility] [place] 13:31:21 Date Recorded Heart rate Systolic And Diastolic Provider Name and Address Organization Details Last Updated DateTime 08/14/2024 54 /min 124/64 mm[Hg] Not Available [facility] 08/14/2024 17:30:05 Date Recorded Heart rate Systolic And Diastolic Provider Name and Address Organization Details Last Updated DateTime 08/15/2023 50 /min 119/54 mm[Hg] Not Available [facility] 08/15/2023 14:06:01 Date Recorded Heart rate Systolic And Diastolic Provider Name and Address Organization Details Last Updated DateTime 08/15/2024 56 /min 118/60 mm[Hg] Not Available [facility] 08/15/2024 13:43:04 Date Recorded Heart rate Systolic And Diastolic Provider Name and Address Organization Details Last Updated DateTime 08/16/2023 50 /min 116/55 mm[Hg] Not Available [facility] 08/16/2023 14:33:02 Date Recorded Heart rate Systolic And Diastolic Provider Name and Address Organization Details Last Updated DateTime 08/17/2023 50 /min 117/68 mm[Hg] Not Available [facility] 08/17/2023 15:41:04 Date Recorded Heart rate Systolic And Diastolic Provider Name and Address Organization Details Last Updated DateTime 08/17/2024 59 /min 128/72 mm[Hg] Not Available [facility] 08/17/2024 12:41:09 Date Recorded Heart rate Systolic And Diastolic Provider Name and Address Organization Details Last Updated DateTime 08/18/2023 58 /min 122/51 mm[Hg] Not Available [facility] 08/18/2023 15:44:07 Date Recorded Body height Body mass index (BMI) Body weight Heart rate Oxygen saturation Oxygen saturation in Arterial blood by Pulse oximetry Body temperature Systolic And Diastolic Provider Name and Address Organization Details Last Updated DateTime 152.4 cm 32.2 kg/m2 35154.7 4 g 60 /min 98 % 98 % 97.6 [degF] 130/78 mm[Hg] Quynh Guzmán MA [facility] [place] 13:30:36 Date Recorded Heart rate Systolic And Diastolic Provider Name and Address Organization Details Last Updated DateTime 08/18/2024 54 /min 116/62 mm[Hg] Not Available [facility] 08/18/2024 12:15:02 Date Recorded Heart rate Systolic And Diastolic Provider Name and Address Organization Details Last Updated DateTime 08/19/2023 53 /min 122/51 mm[Hg] Not Available [facility] 08/19/2023 13:16:02 Date Recorded Heart rate Systolic And Diastolic Provider Name and Address Organization Details Last Updated DateTime 08/19/2024 55 /min 118/66 mm[Hg] Not Available [facility] 08/19/2024 10:57:04 Date Recorded Heart rate Systolic And Diastolic Provider Name and Address Organization Details Last Updated DateTime 08/21/2023 53 /min 120/72 mm[Hg] Not Available [facility] 08/21/2023 12:17:06 Date Recorded Heart rate Systolic And Diastolic Provider Name and Address Organization Details Last Updated DateTime 08/23/2023 57 /min 136/72 mm[Hg] Not Available [facility] 08/23/2023 15:47:07 Date Recorded Heart rate Systolic And Diastolic Provider Name and Address Organization Details Last Updated DateTime 08/25/2024 54 /min 125/56 mm[Hg] Not Available [facility] 08/25/2024 12:54:08 Date Recorded Heart rate Systolic And Diastolic Provider Name and Address Organization Details Last Updated DateTime 08/26/2023 54 /min 133/69 mm[Hg] Not Available [facility] 08/26/2023 15:11:04 Date Recorded Heart rate Systolic And Diastolic Provider Name and Address Organization Details Last Updated DateTime 08/26/2024 54 /min 121/57 mm[Hg] Not Available [facility] 08/26/2024 11:46:06 Date Recorded Heart rate Systolic And Diastolic Provider Name and Address Organization Details Last Updated DateTime 08/27/2023 57 /min 133/69 mm[Hg] Not Available [facility] 08/27/2023 17:14:06 Date Recorded Heart rate Systolic And Diastolic Provider Name and Address Organization Details Last Updated DateTime 08/28/2024 59 /min 121/69 mm[Hg] Not Available [facility] 08/28/2024 17:11:04 Date Recorded Heart rate Systolic And Diastolic Provider Name and Address Organization Details Last Updated DateTime 08/30/2023 51 /min 107/51 mm[Hg] Not Available [facility] 08/30/2023 15:09:04 Date Recorded Heart rate Systolic And Diastolic Provider Name and Address Organization Details Last Updated DateTime 08/31/2024 54 /min 117/73 mm[Hg] Not Available [facility] 08/31/2024 17:49:02 Date Recorded Heart rate Systolic And Diastolic Provider Name and Address Organization Details Last Updated DateTime 09/01/2023 55 /min 117/68 mm[Hg] Not Available [facility] 09/01/2023 15:32:04 Date Recorded Heart rate Systolic And Diastolic Provider Name and Address Organization Details Last Updated DateTime 09/03/2023 59 /min 113/55 mm[Hg] Not Available [facility] 09/03/2023 17:22:06 Date Recorded Heart rate Systolic And Diastolic Provider Name and Address Organization Details Last Updated DateTime 09/03/2024 57 /min 114/63 mm[Hg] Not Available [facility] 09/03/2024 18:08:01 Date Recorded Heart rate Systolic And Diastolic Provider Name and Address Organization Details Last Updated DateTime 09/06/2024 51 /min 117/63 mm[Hg] Not Available [facility] 09/06/2024 12:11:04 Date Recorded Heart rate Systolic And Diastolic Provider Name and Address Organization Details Last Updated DateTime 09/07/2024 52 /min 117/63 mm[Hg] Not Available [facility] 09/07/2024 13:11:05 Date Recorded Heart rate Systolic And Diastolic Provider Name and Address Organization Details Last Updated DateTime 09/09/2023 57 /min 116/62 mm[Hg] Not Available [facility] 09/09/2023 16:13:03 Date Recorded Heart rate Systolic And Diastolic Provider Name and Address Organization Details Last Updated DateTime 09/09/2024 54 /min 120/66 mm[Hg] Not Available [facility] 09/09/2024 13:59:05 Date Recorded Heart rate Systolic And Diastolic Provider Name and Address Organization Details Last Updated DateTime 09/10/2023 59 /min 109/58 mm[Hg] Not Available [facility] 09/10/2023 17:23:06 Date Recorded Heart rate Systolic And Diastolic Provider Name and Address Organization Details Last Updated DateTime 09/10/2024 54 /min 106/66 mm[Hg] Not Available [facility] 09/10/2024 13:30:04 Date Recorded Heart rate Systolic And Diastolic Provider Name and Address Organization Details Last Updated DateTime 09/12/2023 58 /min 122/58 mm[Hg] Not Available [facility] 09/12/2023 14:53:02 Date Recorded Heart rate Systolic And Diastolic Provider Name and Address Organization Details Last Updated DateTime 09/13/2024 52 /min 136/72 mm[Hg] Not Available [facility] 09/13/2024 16:03:02 Date Recorded Heart rate Systolic And Diastolic Provider Name and Address Organization Details Last Updated DateTime 09/17/2023 55 /min 98/48 mm[Hg] Not Available [facility] 0 09/17/2023 17:08:02 Date Recorded Heart rate Systolic And Diastolic Provider Name and Address Organization Details Last Updated DateTime 09/18/2023 55 /min 109/52 mm[Hg] Not Available [facility] 09/18/2023 16:14:06 Date Recorded Heart rate Systolic And Diastolic Provider Name and Address Organization Details Last Updated DateTime 09/17/2024 53 /min 125/66 mm[Hg] Not Available [facility] 09/17/2024 16:03:06 Date Recorded Heart rate Systolic And Diastolic Provider Name and Address Organization Details Last Updated DateTime 09/20/2024 53 /min 122/66 mm[Hg] Not Available [facility] 09/20/2024 11:21:04 Date Recorded Heart rate Systolic And Diastolic Provider Name and Address Organization Details Last Updated DateTime 09/21/2024 52 /min 126/64 mm[Hg] Not Available [facility] 09/21/2024 12:48:37 Date Recorded Heart rate Systolic And Diastolic Provider Name and Address Organization Details Last Updated DateTime 09/23/2023 54 /min 115/70 mm[Hg] Not Available [facility] 09/23/2023 14:28:03 Date Recorded Heart rate Systolic And Diastolic Provider Name and Address Organization Details Last Updated DateTime 09/23/2024 58 /min 126/66 mm[Hg] Not Available [facility] 09/23/2024 13:58:34 Date Recorded Heart rate Systolic And Diastolic Provider Name and Address Organization Details Last Updated DateTime 09/26/2023 53 /min 115/65 mm[Hg] Not Available [facility] 09/26/2023 14:42:05 Date Recorded Heart rate Systolic And Diastolic Provider Name and Address Organization Details Last Updated DateTime 09/28/2024 53 /min 105/66 mm[Hg] Not Available [facility] 09/28/2024 17:36:35 Date Recorded Heart rate Systolic And Diastolic Provider Name and Address Organization Details Last Updated DateTime 10/01/2023 57 /min 105/63 mm[Hg] Not Available [facility] 10/01/2023 17:43:04 Date Recorded Heart rate Systolic And Diastolic Provider Name and Address Organization Details Last Updated DateTime 09/30/2024 53 /min 119/65 mm[Hg] Not Available [facility] 09/30/2024 13:42:36 Date Recorded Heart rate Systolic And Diastolic Provider Name and Address Organization Details Last Updated DateTime 10/03/2023 56 /min 131/70 mm[Hg] Not Available [facility] 10/03/2023 15:05:06 Date Recorded Heart rate Systolic And Diastolic Provider Name and Address Organization Details Last Updated DateTime 10/03/2024 49 /min 126/65 mm[Hg] Not Available [facility] 10/03/2024 17:17:35 Date Recorded Heart rate Systolic And Diastolic Provider Name and Address Organization Details Last Updated DateTime 10/05/2023 55 /min 133/70 mm[Hg] Not Available [facility] 10/05/2023 16:33:02 Date Recorded Heart rate Systolic And Diastolic Provider Name and Address Organization Details Last Updated DateTime 10/08/2024 51 /min 102/59 mm[Hg] Not Available [facility] 10/08/2024 14:52:38 Date Recorded Heart rate Systolic And Diastolic Provider Name and Address Organization Details Last Updated DateTime 10/11/2023 55 /min 128/67 mm[Hg] Not Available [facility] 10/11/2023 15:50:03 Date Recorded Heart rate Systolic And Diastolic Provider Name and Address Organization Details Last Updated DateTime 10/12/2023 57 /min 112/67 mm[Hg] Not Available [facility] 10/12/2023 15:38:02 Date Recorded Heart rate Systolic And Diastolic Provider Name and Address Organization Details Last Updated DateTime 10/11/2024 54 /min 110/57 mm[Hg] Not Available [facility] 10/11/2024 09:50:36 Date Recorded Heart rate Systolic And Diastolic Provider Name and Address Organization Details Last Updated DateTime 10/15/2024 56 /min 117/68 mm[Hg] Not Available [facility] 10/15/2024 17:18:34 Date Recorded Heart rate Systolic And Diastolic Provider Name and Address Organization Details Last Updated DateTime 10/17/2023 59 /min 119/57 mm[Hg] Not Available [facility] 10/17/2023 15:34:05 Date Recorded Heart rate Systolic And Diastolic Provider Name and Address Organization Details Last Updated DateTime 10/19/2023 61 /min 135/70 mm[Hg] Not Available [facility] 10/19/2023 14:31:03 Date Recorded Heart rate Systolic And Diastolic Provider Name and Address Organization Details Last Updated DateTime 10/18/2024 51 /min 117/64 mm[Hg] Not Available [facility] 10/18/2024 14:34:36 Date Recorded Heart rate Systolic And Diastolic Provider Name and Address Organization Details Last Updated DateTime 10/21/2024 54 /min 117/60 mm[Hg] Not Available [facility] 10/21/2024 17:56:38 Date Recorded Heart rate Systolic And Diastolic Provider Name and Address Organization Details Last Updated DateTime 10/25/2023 56 /min 129/70 mm[Hg] Not Available [facility] 10/25/2023 13:42:07 Date Recorded Heart rate Systolic And Diastolic Provider Name and Address Organization Details Last Updated DateTime 10/31/2024 50 /min 117/71 mm[Hg] Not Available [facility] 10/31/2024 17:26:34 Date Recorded Heart rate Systolic And Diastolic Provider Name and Address Organization Details Last Updated DateTime 11/01/2024 48 /min 111/64 mm[Hg] Not Available [facility] 11/01/2024 10:34:42 Date Recorded Heart rate Systolic And Diastolic Provider Name and Address Organization Details Last Updated DateTime 11/03/2023 56 /min 112/63 mm[Hg] Not Available [facility] 11/03/2023 11:19:04 Date Recorded Heart rate Systolic And Diastolic Provider Name and Address Organization Details Last Updated DateTime 11/03/2024 50 /min 111/63 mm[Hg] Not Available [facility] 11/03/2024 10:08:39 Date Recorded Heart rate Systolic And Diastolic Provider Name and Address Organization Details Last Updated DateTime 11/07/2024 54 /min 127/70 mm[Hg] Not Available [facility] 11/07/2024 17:35:39 Date Recorded Heart rate Systolic And Diastolic Provider Name and Address Organization Details Last Updated DateTime 11/10/2023 55 /min 130/63 mm[Hg] Not Available [facility] 11/10/2023 15:46:02 Date Recorded Heart rate Systolic And Diastolic Provider Name and Address Organization Details Last Updated DateTime 11/09/2024 54 /min 127/64 mm[Hg] Not Available [facility] 11/09/2024 09:10:39 Date Recorded Heart rate Systolic And Diastolic Provider Name and Address Organization Details Last Updated DateTime 11/11/2024 55 /min 113/61 mm[Hg] Not Available [facility] 11/11/2024 19:43:38 Date Recorded Heart rate Systolic And Diastolic Provider Name and Address Organization Details Last Updated DateTime 11/13/2023 55 /min 113/52 mm[Hg] Not Available [facility] 11/13/2023 10:11:04 Date Recorded Heart rate Systolic And Diastolic Provider Name and Address Organization Details Last Updated DateTime 11/14/2023 53 /min 113/55 mm[Hg] Not Available [facility] 11/14/2023 15:57:04 Date Recorded Heart rate Systolic And Diastolic Provider Name and Address Organization Details Last Updated DateTime 11/17/2023 57 /min 119/65 mm[Hg] Not Available [facility] 11/17/2023 16:06:06 Date Recorded Heart rate Heart rate Systolic And Diastolic Systolic And Diastolic Provider Name and Address Organization Details Last Updated DateTime 11/18/2023 53 /min 52 /min 112/81 mm[Hg] 112/57 mm[Hg] Not Available [facility] 11/18/2023 15:54:02 Date Recorded Heart rate Systolic And Diastolic Provider Name and Address Organization Details Last Updated DateTime 11/17/2024 57 /min 113/62 mm[Hg] Not Available [facility] 11/17/2024 08:25:35 Date Recorded Heart rate Systolic And Diastolic Provider Name and Address Organization Details Last Updated DateTime 11/21/2023 55 /min 123/59 mm[Hg] Not Available [facility] 11/21/2023 14:27:01 Date Recorded Heart rate Systolic And Diastolic Provider Name and Address Organization Details Last Updated DateTime 11/21/2024 52 /min 106/61 mm[Hg] Not Available [facility] 11/21/2024 16:13:37 Date Recorded Heart rate Systolic And Diastolic Provider Name and Address Organization Details Last Updated DateTime 11/24/2023 57 /min 119/66 mm[Hg] Not Available [facility] 11/24/2023 10:28:03 Date Recorded Heart rate Systolic And Diastolic Provider Name and Address Organization Details Last Updated DateTime 11/23/2024 50 /min 106/62 mm[Hg] Not Available [facility] 11/23/2024 10:36:35 Date Recorded Heart rate Systolic And Diastolic Provider Name and Address Organization Details Last Updated DateTime 11/26/2023 53 /min 119/66 mm[Hg] Not Available [facility] 11/26/2023 17:20:03 Date Recorded Heart rate Systolic And Diastolic Provider Name and Address Organization Details Last Updated DateTime 11/27/2023 55 /min 119/66 mm[Hg] Not Available [facility] 11/27/2023 09:46:03 Date Recorded Heart rate Systolic And Diastolic Provider Name and Address Organization Details Last Updated DateTime 11/26/2024 52 /min 103/62 mm[Hg] Not Available [facility] 11/26/2024 14:55:38 Date Recorded Heart rate Systolic And Diastolic Provider Name and Address Organization Details Last Updated DateTime 11/30/2023 63 /min 119/69 mm[Hg] Not Available [facility] 11/30/2023 17:11:05 Date Recorded Heart rate Systolic And Diastolic Provider Name and Address Organization Details Last Updated DateTime 12/04/2023 58 /min 117/69 mm[Hg] Not Available [facility] 12/04/2023 12:30:01 Date Recorded Heart rate Systolic And Diastolic Provider Name and Address Organization Details Last Updated DateTime 12/04/2024 52 /min 124/63 mm[Hg] Not Available [facility] 12/04/2024 17:06:40 Date Recorded Heart rate Systolic And Diastolic Provider Name and Address Organization Details Last Updated DateTime 12/06/2023 59 /min 117/68 mm[Hg] Not Available [facility] 12/06/2023 17:26:05 Date Recorded Heart rate Systolic And Diastolic Provider Name and Address Organization Details Last Updated DateTime 12/07/2023 58 /min 106/55 mm[Hg] Not Available [facility] 12/07/2023 15:22:03 Date Recorded Heart rate Systolic And Diastolic Provider Name and Address Organization Details Last Updated DateTime 12/06/2024 54 /min 122/69 mm[Hg] Not Available [facility] 12/06/2024 17:07:34 Date Recorded Heart rate Systolic And Diastolic Provider Name and Address Organization Details Last Updated DateTime 12/07/2024 51 /min 118/66 mm[Hg] Not Available [facility] 12/07/2024 12:56:34 Date Recorded Heart rate Systolic And Diastolic Provider Name and Address Organization Details Last Updated DateTime 12/09/2023 57 /min 104/55 mm[Hg] Not Available [facility] 12/09/2023 17:39:03 Date Recorded Heart rate Systolic And Diastolic Provider Name and Address Organization Details Last Updated DateTime 12/13/2023 58 /min 109/58 mm[Hg] Not Available [facility] 12/13/2023 18:26:05 Date Recorded Heart rate Systolic And Diastolic Provider Name and Address Organization Details Last Updated DateTime 12/12/2024 54 /min 124/66 mm[Hg] Not Available [facility] 12/12/2024 14:30:35 Date Recorded Heart rate Systolic And Diastolic Provider Name and Address Organization Details Last Updated DateTime 12/13/2024 53 /min 120/65 mm[Hg] Not Available [facility] 12/13/2024 11:20:36 Date Recorded Heart rate Systolic And Diastolic Provider Name and Address Organization Details Last Updated DateTime 12/15/2023 52 /min 106/58 mm[Hg] Not Available [facility] 12/15/2023 10:38:07 Date Recorded Heart rate Systolic And Diastolic Provider Name and Address Organization Details Last Updated DateTime 12/16/2023 57 /min 107/62 mm[Hg] Not Available [facility] 12/16/2023 13:12:05 Date Recorded Heart rate Systolic And Diastolic Provider Name and Address Organization Details Last Updated DateTime 12/15/2024 53 /min 120/67 mm[Hg] Not Available [facility] 12/15/2024 11:32:35 Date Recorded Heart rate Systolic And Diastolic Provider Name and Address Organization Details Last Updated DateTime 12/17/2023 57 /min 107/60 mm[Hg] Not Available [facility] 12/17/2023 17:16:06 Date Recorded Heart rate Systolic And Diastolic Provider Name and Address Organization Details Last Updated DateTime 12/16/2024 60 /min 106/67 mm[Hg] [facility] 12[facility]16/[facility] 14:47:35 Date Recorded Heart rate Systolic And Diastolic Provider Name and Address Organization Details Last Updated DateTime 12/18/2023 54 /min 108/62 mm[Hg] Not Available [facility] 12/18/2023 14:22:04 Date Recorded Heart rate Systolic And Diastolic Provider Name and Address Organization Details Last Updated DateTime 12/19/2024 51 /min 104/66 mm[Hg] Not Available [facility] 12/19/2024 16:56:34 Date Recorded Heart rate Systolic And Diastolic Provider Name and Address Organization Details Last Updated DateTime 12/22/2023 57 /min 111/62 mm[Hg] Not Available [facility] 12/22/2023 15:17:06 Date Recorded Heart rate Systolic And Diastolic Provider Name and Address Organization Details Last Updated DateTime 12/22/2024 54 /min 128/66 mm[Hg] Not Available [facility] 12/22/2024 12:14:39 Date Recorded Heart rate Systolic And Diastolic Provider Name and Address Organization Details Last Updated DateTime 12/25/2023 50 /min 112/62 mm[Hg] Not Available [facility] 12/25/2023 11:25:03 Date Recorded Heart rate Systolic And Diastolic Provider Name and Address Organization Details Last Updated DateTime 12/24/2024 56 /min 134/68 mm[Hg] Not Available [facility] 12/24/2024 16:58:36 Date Recorded Heart rate Systolic And Diastolic Provider Name and Address Organization Details Last Updated DateTime 12/25/2024 50 /min 108/67 mm[Hg] Not Available [facility] 12/25/2024 17:31:34 Date Recorded Heart rate Systolic And Diastolic Provider Name and Address Organization Details Last Updated DateTime 12/28/2023 50 /min 112/60 mm[Hg] Not Available [facility] 12/28/2023 17:09:03 Date Recorded Heart rate Systolic And Diastolic Provider Name and Address Organization Details Last Updated DateTime 12/27/2024 52 /min 102/63 mm[Hg] Not Available [facility] 12/27/2024 17:33:35 Date Recorded Heart rate Systolic And Diastolic Provider Name and Address Organization Details Last Updated DateTime 12/29/2023 52 /min 102/60 mm[Hg] Not Available [facility] 12/29/2023 12:32:07 Date Recorded Heart rate Systolic And Diastolic Provider Name and Address Organization Details Last Updated DateTime 12/30/2023 55 /min 108/60 mm[Hg] Not Available [facility] 12/30/2023 10:56:01 Date Recorded Heart rate Systolic And Diastolic Provider Name and Address Organization Details Last Updated DateTime 12/30/2024 51 /min 98/63 mm[Hg] Not Available [facility] 01/01/2025 13:49:36 Date Recorded Heart rate Systolic And Diastolic Provider Name and Address Organization Details Last Updated DateTime 01/02/2024 56 /min 120/62 mm[Hg] Not Available [facility] 01/02/2024 17:00:04 Date Recorded Heart rate Systolic And Diastolic Provider Name and Address Organization Details Last Updated DateTime 01/01/2025 53 /min 98/61 mm[Hg] Not Available [facility] 01/01/2025 13:49:35 Date Recorded Heart rate Systolic And Diastolic Provider Name and Address Organization Details Last Updated DateTime 01/03/2024 50 /min 114/58 mm[Hg] Not Available [facility] 01/03/2024 17:21:02 Date Recorded Heart rate Systolic And Diastolic Provider Name and Address Organization Details Last Updated DateTime 01/02/2025 50 /min 123/61 mm[Hg] Not Available [facility] 01/02/2025 17:40:36 Date Recorded Heart rate Systolic And Diastolic Provider Name and Address Organization Details Last Updated DateTime 01/03/2025 51 /min 102/61 mm[Hg] Not Available [facility] 01/03/2025 10:15:37 Date Recorded Heart rate Systolic And Diastolic Provider Name and Address Organization Details Last Updated DateTime 01/05/2024 52 /min 92/54 mm[Hg] [facility] Available [facility] 01/05/2024 14:35:04 Date Recorded Heart rate Systolic And Diastolic Provider Name and Address Organization Details Last Updated DateTime 01/06/2024 55 /min 113/58 mm[Hg] Not Available [facility] 01/06/2024 13:02:05 Date Recorded Heart rate Systolic And Diastolic Provider Name and Address Organization Details Last Updated DateTime 01/06/2025 52 /min 102/64 mm[Hg] Not Available [facility] 01/06/2025 17:00:34 Date Recorded Heart rate Systolic And Diastolic Provider Name and Address Organization Details Last Updated DateTime 01/07/2025 51 /min 127/64 mm[Hg] Not Available [facility] 01/07/2025 13:13:35 Date Recorded Heart rate Systolic And Diastolic Provider Name and Address Organization Details Last Updated DateTime 01/09/2024 55 /min 114/63 mm[Hg] Not Available [facility] 01/09/2024 13:29:05 Date Recorded Heart rate Systolic And Diastolic Provider Name and Address Organization Details Last Updated DateTime 01/08/2025 52 /min 128/66 mm[Hg] Not Available [facility] 01/08/2025 18:40:36 Date Recorded Heart rate Systolic And Diastolic Provider Name and Address Organization Details Last Updated DateTime 01/11/2024 53 /min 112/58 mm[Hg] Not Available [facility] 01/11/2024 13:21:05 Date Recorded Heart rate Systolic And Diastolic Provider Name and Address Organization Details Last Updated DateTime 01/12/2024 56 /min 123/62 mm[Hg] Not Available [facility] 01/12/2024 19:21:02 Date Recorded Heart rate Systolic And Diastolic Provider Name and Address Organization Details Last Updated DateTime 01/13/2024 53 /min 109/62 mm[Hg] Not Available [facility] 01/13/2024 13:28:03 Date Recorded Heart rate Systolic And Diastolic Provider Name and Address Organization Details Last Updated DateTime 01/16/2024 52 /min 106/62 mm[Hg] Not Available [facility] 01/16/2024 15:59:05 Date Recorded Heart rate Systolic And Diastolic Provider Name and Address Organization Details Last Updated DateTime 01/15/2025 51 /min 100/58 mm[Hg] Not Available [facility] 01/15/2025 17:22:36 Date Recorded Heart rate Systolic And Diastolic Provider Name and Address Organization Details Last Updated DateTime 01/16/2025 51 /min 117/68 mm[Hg] Not Available [facility] 01/17/2025 16:30:35 Date Recorded Heart rate Systolic And Diastolic Provider Name and Address Organization Details Last Updated DateTime 01/17/2025 47 /min 98/64 mm[Hg] Not Available [facility] 0 01/17/2025 16:30:39 Date Recorded Heart rate Systolic And Diastolic Provider Name and Address Organization Details Last Updated DateTime 01/18/2025 50 /min 120/62 mm[Hg] Not Available [facility] 01/18/2025 17:41:35 Date Recorded Heart rate Systolic And Diastolic Provider Name and Address Organization Details Last Updated DateTime 01/20/2024 59 /min 107/65 mm[Hg] Not Available [facility] 01/20/2024 16:49:02 Date Recorded Heart rate Systolic And Diastolic Provider Name and Address Organization Details Last Updated DateTime 01/22/2024 54 /min 117/65 mm[Hg] Not Available [facility] 01/22/2024 14:34:06 Date Recorded Heart rate Systolic And Diastolic Provider Name and Address Organization Details Last Updated DateTime 01/22/2025 58 /min 104/63 mm[Hg] Not Available [facility] 01/22/2025 16:39:35 Date Recorded Heart rate Systolic And Diastolic Provider Name and Address Organization Details Last Updated DateTime 01/26/2024 51 /min 106/63 mm[Hg] Not Available [facility] 01/26/2024 12:35:02 Date Recorded Heart rate Systolic And Diastolic Provider Name and Address Organization Details Last Updated DateTime 01/29/2024 50 /min 106/56 mm[Hg] Not Available [facility] 01/29/2024 12:24:07 Date Recorded Heart rate Systolic And Diastolic Provider Name and Address Organization Details Last Updated DateTime 01/28/2025 53 /min 92/59 mm[Hg] Not Available [facility] 0 01/28/2025 17:46:34 Date Recorded Heart rate Systolic And Diastolic Provider Name and Address Organization Details Last Updated DateTime 01/31/2025 48 /min 148/61 mm[Hg] Not Available [facility] 01/31/2025 10:16:36 Date Recorded Heart rate Systolic And Diastolic Provider Name and Address Organization Details Last Updated DateTime 02/02/2024 57 /min 118/63 mm[Hg] Not Available [facility] 02/02/2024 17:10:05 Date Recorded Heart rate Systolic And Diastolic Provider Name and Address Organization Details Last Updated DateTime 02/01/2025 56 /min 120/63 mm[Hg] Not Available [facility] 02/01/2025 10:24:31 Date Recorded Heart rate Systolic And Diastolic Provider Name and Address Organization Details Last Updated DateTime 02/03/2024 55 /min 118/63 mm[Hg] Not Available [facility] 02/03/2024 16:37:03 Date Recorded Heart rate Systolic And Diastolic Provider Name and Address Organization Details Last Updated DateTime 02/05/2024 51 /min 102/63 mm[Hg] Not Available [facility] 02/05/2024 14:50:05 Date Recorded Heart rate Systolic And Diastolic Provider Name and Address Organization Details Last Updated DateTime 02/07/2024 52 /min 105/56 mm[Hg] Not Available [facility] 02/07/2024 16:15:02 Date Recorded Heart rate Systolic And Diastolic Provider Name and Address Organization Details Last Updated DateTime 02/09/2024 54 /min 129/63 mm[Hg] Not Available [facility] 02/09/2024 12:06:08 Date Recorded Heart rate Systolic And Diastolic Provider Name and Address Organization Details Last Updated DateTime 02/10/2024 53 /min 112/62 mm[Hg] Not Available [facility] 02/10/2024 16:28:06 Date Recorded Heart rate Systolic And Diastolic Provider Name and Address Organization Details Last Updated DateTime 02/11/2024 58 /min 113/63 mm[Hg] Not Available [facility] 02/11/2024 12:57:04 Date Recorded Body height Body mass index (BMI) Body weight Oxygen saturation Oxygen saturation in Arterial blood by Pulse oximetry Heart rate Body temperature Systolic And Diastolic Provider Name and Address Organization Details Last Updated DateTime 3 152.4 cm 35 kg/m2 41106.4 3 g 97 % 97 % 61 /min 97.6 [degF] 112/68 mm[Hg] Jacqueline Shaw MA [facility] 3 13:41:36 Date Recorded Heart rate Heart rate Systolic And Diastolic Systolic And Diastolic Provider Name and Address Organization Details Last Updated DateTime 02/14/2023 55 /min 55 /min 126/70 mm[Hg] 126/70 mm[Hg] Not Available [facility] 02/14/2023 16:18:09 Date Recorded Body height Body mass index (BMI) Body weight Oxygen saturation Oxygen saturation in Arterial blood by Pulse oximetry Heart rate Body temperature Systolic And Diastolic Provider Name and Address Organization Details Last Updated DateTime 4 152.4 cm 33.1 kg/m2 41951.5 1 g 97 % 97 % 62 /min 97.8 [degF] 117/72 mm[Hg] Jacqueline Shaw MA [facility] 4 13:00:48 Date Recorded Heart rate Heart rate Systolic And Diastolic Systolic And Diastolic Provider Name and Address Organization Details Last Updated DateTime 02/15/2023 54 /min 54 /min 114/70 mm[Hg] 114/70 mm[Hg] Not Available [facility] 02/15/2023 17:13:06 Date Recorded Heart rate Systolic And Diastolic Provider Name and Address Organization Details Last Updated DateTime 02/16/2024 53 /min 103/63 mm[Hg] Not Available [facility] 02/16/2024 12:48:06 Date Recorded Heart rate Heart rate Systolic And Diastolic Systolic And Diastolic Provider Name and Address Organization Details Last Updated DateTime 02/16/2023 55 /min 55 /min 116/71 mm[Hg] 116/71 mm[Hg] Not Available [facility] 02/20/2023 13:56:06 Date Recorded Heart rate Systolic And Diastolic Provider Name and Address Organization Details Last Updated DateTime 02/17/2024 55 /min 118/69 mm[Hg] Not Available [facility] 02/17/2024 17:30:04 Date Recorded Heart rate Heart rate Systolic And Diastolic Systolic And Diastolic Provider Name and Address Organization Details Last Updated DateTime 02/18/2023 57 /min 57 /min 120/71 mm[Hg] 120/71 mm[Hg] Not Available [facility] 02/20/2023 13:56:04 Date Recorded Heart rate Systolic And Diastolic Provider Name and Address Organization Details Last Updated DateTime 02/20/2024 56 /min 135/72 mm[Hg] Not Available [facility] 02/20/2024 17:33:01 Date Recorded Heart rate Heart rate Systolic And Diastolic Systolic And Diastolic Provider Name and Address Organization Details Last Updated DateTime 02/20/2023 55 /min 55 /min 116/70 mm[Hg] 116/70 mm[Hg] Not Available [facility] 02/20/2023 13:56:04 Date Recorded Heart rate Heart rate Systolic And Diastolic Systolic And Diastolic Provider Name and Address Organization Details Last Updated DateTime 02/21/2023 56 /min 56 /min 138/74 mm[Hg] 138/74 mm[Hg] Not Available [facility] 02/21/2023 15:33:03 Date Recorded Heart rate Systolic And Diastolic Provider Name and Address Organization Details Last Updated DateTime 02/24/2023 56 /min 120/74 mm[Hg] Not Available [facility] 03/21/2023 17:02:03 Date Recorded Heart rate Systolic And Diastolic Provider Name and Address Organization Details Last Updated DateTime 02/25/2024 55 /min 105/58 mm[Hg] Not Available [facility] 02/25/2024 12:20:08 Date Recorded Heart rate Systolic And Diastolic Provider Name and Address Organization Details Last Updated DateTime 02/27/2024 54 /min 94/56 mm[Hg] Not Available [facility] 0 02/27/2024 15:23:01 Date Recorded Heart rate Systolic And Diastolic Provider Name and Address Organization Details Last Updated DateTime 03/02/2024 51 /min 130/68 mm[Hg] Not Available [facility] 03/02/2024 12:20:03 Date Recorded Heart rate Systolic And Diastolic Provider Name and Address Organization Details Last Updated DateTime 03/07/2024 48 /min 103/57 mm[Hg] Not Available [facility] 03/07/2024 16:43:01 Date Recorded Heart rate Systolic And Diastolic Provider Name and Address Organization Details Last Updated DateTime 03/08/2024 49 /min 103/50 mm[Hg] Not Available [facility] 03/08/2024 11:20:02 Date Recorded Heart rate Systolic And Diastolic Provider Name and Address Organization Details Last Updated DateTime 03/12/2024 54 /min 122/64 mm[Hg] Not Available [facility] 03/12/2024 14:50:02 Date Recorded Heart rate Systolic And Diastolic Provider Name and Address Organization Details Last Updated DateTime 03/18/2024 50 /min 103/56 mm[Hg] Not Available [facility] 03/18/2024 15:12:05 Date Recorded Heart rate Systolic And Diastolic Provider Name and Address Organization Details Last Updated DateTime 03/20/2024 50 /min 103/56 mm[Hg] [facility] Available [facility] 03/20/[facility]24 18:43:02 Date Recorded Heart rate Heart rate Systolic And Diastolic Systolic And Diastolic Provider Name and Address Organization Details Last Updated DateTime 03/21/2023 55 /min 59 /min 141/74 mm[Hg] 134/74 mm[Hg] Not Available [facility] 03/21/2023 21:14:06 Date Recorded Heart rate Systolic And Diastolic Provider Name and Address Organization Details Last Updated DateTime 03/24/2023 58 /min 118/71 mm[Hg] Not Available [facility] 03/24/2023 22:23:06 Date Recorded Heart rate Systolic And Diastolic Provider Name and Address Organization Details Last Updated DateTime 03/24/2024 54 /min 109/59 mm[Hg] Not Available [facility] 03/24/2024 17:22:06 Date Recorded Heart rate Systolic And Diastolic Provider Name and Address Organization Details Last Updated DateTime 03/26/2023 55 /min 101/60 mm[Hg] Not Available [facility] 03/26/2023 16:04:03 Date Recorded Heart rate Systolic And Diastolic Provider Name and Address Organization Details Last Updated DateTime 03/29/2024 50 /min 109/56 mm[Hg] Not Available [facility] 03/29/2024 10:59:04 Date Recorded Heart rate Systolic And Diastolic Provider Name and Address Organization Details Last Updated DateTime 04/05/2023 54 /min 114/66 mm[Hg] Not Available [facility] 04/05/2023 16:06:04 Date Recorded Heart rate Systolic And Diastolic Provider Name and Address Organization Details Last Updated DateTime 04/05/2024 53 /min 109/61 mm[Hg] Not Available [facility] 04/05/2024 11:57:06 Date Recorded Heart rate Systolic And Diastolic Provider Name and Address Organization Details Last Updated DateTime 04/06/2024 63 /min 139/64 mm[Hg] Not Available [facility] 04/06/2024 17:07:05 Date Recorded Heart rate Systolic And Diastolic Provider Name and Address Organization Details Last Updated DateTime 04/07/2023 54 /min 114/68 mm[Hg] Not Available [facility] 04/07/2023 10:37:04 Date Recorded Heart rate Systolic And Diastolic Provider Name and Address Organization Details Last Updated DateTime 04/11/2023 54 /min 115/68 mm[Hg] Not Available [facility] 04/11/2023 11:26:03 Date Recorded Heart rate Systolic And Diastolic Provider Name and Address Organization Details Last Updated DateTime 04/11/2024 51 /min 111/64 mm[Hg] Not Available [facility] 04/11/2024 16:29:03 Date Recorded Body height Body mass index (BMI) Body weight Heart rate Oxygen saturation Oxygen saturation in Arterial blood by Pulse oximetry Body temperature Systolic And Diastolic Provider Name and Address Organization Details Last Updated DateTime 152.4 cm 32.9 kg/m2 71089.9 2 g 60 /min 97 % 97 % 97.7 [degF] 102/65 mm[Hg] Shyla Aguilar [facility] 10:59:21 Date Recorded Heart rate Systolic And Diastolic Provider Name and Address Organization Details Last Updated DateTime 04/13/2024 54 /min 115/64 mm[Hg] Not Available [facility] 04/13/2024 13:12:05 Date Recorded Heart rate Systolic And Diastolic Provider Name and Address Organization Details Last Updated DateTime 04/14/2024 51 /min 125/64 mm[Hg] Not Available [facility] 04/14/2024 12:18:02 Date Recorded Heart rate Systolic And Diastolic Provider Name and Address Organization Details Last Updated DateTime 04/17/2024 57 /min 125/67 mm[Hg] Not Available [facility] 04/17/2024 12:39:02 Date Recorded Heart rate Systolic And Diastolic Provider Name and Address Organization Details Last Updated DateTime 04/18/2023 52 /min 113/68 mm[Hg] Not Available [facility] 04/18/2023 16:57:03 Date Recorded Heart rate Systolic And Diastolic Provider Name and Address Organization Details Last Updated DateTime 04/21/2024 52 /min 99/54 mm[Hg] Not Available [place] [id number] 17:39:05 Date Recorded Heart rate Systolic And Diastolic Provider Name and Address Organization Details Last Updated DateTime 05/01/2024 55 /min 110/59 mm[Hg] Not Available [facility] 05/01/2024 09:25:03 Date Recorded Heart rate Systolic And Diastolic Provider Name and Address Organization Details Last Updated DateTime 05/03/2024 53 /min 112/69 mm[Hg] Not Available [facility] 05/03/2024 15:26:02 Date Recorded Heart rate Systolic And Diastolic Provider Name and Address Organization Details Last Updated DateTime 05/08/2023 54 /min 127/71 mm[Hg] Not Available [facility] 05/08/2023 16:22:03 Date Recorded Heart rate Systolic And Diastolic Provider Name and Address Organization Details Last Updated DateTime 05/11/2024 49 /min 135/69 mm[Hg] Not Available [facility] 05/11/2024 15:53:04 Date Recorded Heart rate Systolic And Diastolic Provider Name and Address Organization Details Last Updated DateTime 05/12/2024 51 /min 117/68 mm[Hg] Not Available [facility] 05/12/2024 11:45:04 Date Recorded Heart rate Systolic And Diastolic Provider Name and Address Organization Details Last Updated DateTime 05/14/2024 51 /min 117/67 mm[Hg] [facility] 05/14/[facility] 12:53:07 Date Recorded Heart rate Systolic And Diastolic Provider Name and Address Organization Details Last Updated DateTime 05/17/2024 51 /min 104/57 mm[Hg] Not Available [facility] 05/17/2024 14:34:05 Date Recorded Heart rate Systolic And Diastolic Provider Name and Address Organization Details Last Updated DateTime 05/21/2024 55 /min 114/61 mm[Hg] Not Available [facility] 05/21/2024 16:50:05 Date Recorded Heart rate Systolic And Diastolic Provider Name and Address Organization Details Last Updated DateTime 05/22/2023 57 /min 123/70 mm[Hg] Not Available [facility] 05/22/2023 14:13:02 Date Recorded Heart rate Systolic And Diastolic Provider Name and Address Organization Details Last Updated DateTime 05/23/2023 57 /min 133/77 mm[Hg] Not Available [facility] 05/23/2023 15:36:02 Date Recorded Heart rate Systolic And Diastolic Provider Name and Address Organization Details Last Updated DateTime 05/25/2023 54 /min 114/71 mm[Hg] Not Available [facility] 05/25/2023 16:28:06 Date Recorded Heart rate Systolic And Diastolic Provider Name and Address Organization Details Last Updated DateTime 05/26/2024 53 /min 114/62 mm[Hg] Not Available [facility] 05/26/2024 09:15:05 Date Recorded Heart rate Systolic And Diastolic Provider Name and Address Organization Details Last Updated DateTime 05/28/2024 51 /min 113/62 mm[Hg] Not Available [facility] 05/28/2024 14:35:06 Date Recorded Heart rate Systolic And Diastolic Provider Name and Address Organization Details Last Updated DateTime 05/31/2024 51 /min 110/65 mm[Hg] Not Available [facility] 05/31/2024 09:28:05 Date Recorded Heart rate Systolic And Diastolic Provider Name and Address Organization Details Last Updated DateTime 06/02/2023 49 /min 128/68 mm[Hg] Not Available [facility] 06/02/2023 11:34:01 Date Recorded Heart rate Systolic And Diastolic Provider Name and Address Organization Details Last Updated DateTime 06/03/2024 50 /min 124/64 mm[Hg] Not Available [facility] 06/03/2024 14:09:05 Date Recorded Heart rate Systolic And Diastolic Provider Name and Address Organization Details Last Updated DateTime 06/07/2024 51 /min 121/61 mm[Hg] Not Available [facility] 06/07/2024 13:19:04 Date Recorded Heart rate Systolic And Diastolic Provider Name and Address Organization Details Last Updated DateTime 06/08/2023 55 /min 117/67 mm[Hg] Not Available [facility] 06/08/2023 14:58:04 Date Recorded Heart rate Systolic And Diastolic Provider Name and Address Organization Details Last Updated DateTime 06/08/2024 51 /min 105/61 mm[Hg] Not Available [facility] 06/08/2024 12:32:02 Date Recorded Heart rate Systolic And Diastolic Provider Name and Address Organization Details Last Updated DateTime 06/09/2024 54 /min 118/73 mm[Hg] Not Available [facility] 06/09/2024 10:02:06 Date Recorded Heart rate Systolic And Diastolic Provider Name and Address Organization Details Last Updated DateTime 06/12/2023 52 /min 132/69 mm[Hg] Not Available [facility] 06/12/2023 14:11:04 Date Recorded Heart rate Systolic And Diastolic Provider Name and Address Organization Details Last Updated DateTime 06/13/2023 54 /min 133/75 mm[Hg] Not Available [facility] 06/13/2023 16:46:05 Date Recorded Heart rate Systolic And Diastolic Provider Name and Address Organization Details Last Updated DateTime 06/18/2024 52 /min 124/70 mm[Hg] Not Available [facility] 06/18/2024 12:31:04 Date Recorded Heart rate Systolic And Diastolic Provider Name and Address Organization Details Last Updated DateTime 06/20/2023 55 /min 144/75 mm[Hg] Not Available [facility] 06/20/2023 14:44:02 Date Recorded Heart rate Systolic And Diastolic Provider Name and Address Organization Details Last Updated DateTime 06/20/2024 49 /min 102/61 mm[Hg] Not Available [facility] 06/20/2024 16:37:04 Date Recorded Heart rate Systolic And Diastolic Provider Name and Address Organization Details Last Updated DateTime 06/21/2023 52 /min 120/73 mm[Hg] Not Available [facility] 06/21/2023 14:21:07 Date Recorded Heart rate Systolic And Diastolic Provider Name and Address Organization Details Last Updated DateTime 06/21/2024 49 /min 112/64 mm[Hg] Not Available [facility] 06/21/2024 10:46:03 Date Recorded Heart rate Systolic And Diastolic Provider Name and Address Organization Details Last Updated DateTime 06/23/2024 52 /min 127/64 mm[Hg] Not Available [facility] 06/23/2024 12:33:05 Date Recorded Heart rate Systolic And Diastolic Provider Name and Address Organization Details Last Updated DateTime 06/24/2023 58 /min 123/76 mm[Hg] Not Available [facility] 06/24/2023 16:23:07 Date Recorded Heart rate Systolic And Diastolic Provider Name and Address Organization Details Last Updated DateTime 06/25/2023 53 /min 124/76 mm[Hg] Not Available [facility] 06/25/2023 16:39:06 Date Recorded Heart rate Systolic And Diastolic Provider Name and Address Organization Details Last Updated DateTime 06/25/2024 50 /min 127/65 mm[Hg] Not Available [facility] 06/25/2024 15:56:02 Date Recorded Heart rate Systolic And Diastolic Provider Name and Address Organization Details Last Updated DateTime 06/26/2023 57 /min 137/74 mm[Hg] Not Available [facility] 06/26/2023 13:39:02 Date Recorded Heart rate Systolic And Diastolic Provider Name and Address Organization Details Last Updated DateTime 06/26/2024 53 /min 125/65 mm[Hg] Not Available [facility] 06/26/2024 12:34:04 Date Recorded Heart rate Systolic And Diastolic Provider Name and Address Organization Details Last Updated DateTime 06/28/2023 60 /min 135/74 mm[Hg] Not Available [facility] 06/28/2023 15:01:03 Date Recorded Heart rate Systolic And Diastolic Provider Name and Address Organization Details Last Updated DateTime 06/28/2024 52 /min 110/64 mm[Hg] Not Available [facility] 06/28/2024 14:40:02 Date Recorded Heart rate Systolic And Diastolic Provider Name and Address Organization Details Last Updated DateTime 06/30/2024 50 /min 125/64 mm[Hg] Not Available [facility] 06/30/2024 11:21:06 Date Recorded Heart rate Systolic And Diastolic Provider Name and Address Organization Details Last Updated DateTime 07/03/2024 53 /min 119/58 mm[Hg] Not Available [facility] 07/03/2024 17:13:01 Date Recorded Heart rate Systolic And Diastolic Provider Name and Address Organization Details Last Updated DateTime 07/05/2024 54 /min 115/60 mm[Hg] Not Available [facility] 07/05/2024 12:04:02 Social History Question Answer Notes LastModified by Organizat ion Details LastModified Time Tobacco Smoking Status Never Smoker Jacqueline Shaw MA [facility] 03/20/2014 11:14:56 Do You Have An Advance Directive? Yes HCP Information not available 10/14/2022 Is Blood Transfusion Acceptable In An Emergency? Yes [email or web address] Information not available 05/31/2015 What Is Your Level Of Caffeine Consumption? Occasional Rare Cola And Tea; No Coffee Information not available 10/13/2017 How Much Tobacco Do You Chew? None [email or web address] Information not available 12/19/2020 In The 14 Days Before Symptom Onset, Have You Had Close Contact With A Laboratory-confi rmed COVID-19 While That Case Was Ill? No Information not available 10/14/2022 In The 14 Days Before Symptom Onset, Have You Had Close Contact With A Person Who Is Under Investigation For COVID-19 While That Person Was Ill? No Information not available 10/14/2022 Have You Been To An Area Known To Be High Risk For COVID-19? No Information not available 10/14/2022 What Type Of Diet Are You Following? REGULAR [email or web address] Information not available 03/20/2014 Which Illicit Or Recreational Drugs Have You Used? None Information not available 10/13/2017 Live Alone Or With Others? Alone Information not available 10/14/2022 Do You Take Precautions To Prevent Distracted Driving? Yes [email or web address] Information not available 05/31/2015 How Often Do You Need To Have Someone Help You When You Read Instructions, Pamphlets, Or Other Written Material From Your Doctor Or Pharmacy? Sometimes [email or web address] Information not available 05/31/2015 Have You Served In The ? No Information not available 06/18/2016 Have You Or Anyone In Your Household Had Any Of The Following Symptoms In The Last 14 Days: Sore Throat, Cough, Chills, Body Aches For Unknown Reasons, Shortness Of Breath For Unknown Reasons, Loss Of Smell, Loss Of Taste, Fever At Or Greater Than 100 Degrees Fahrenheit? No [email or web address] Information not available 03/02/2020 Are You Or Anyone In Your Household A Health Care Provider Or Emergency Responder? No [email or web address] Information not available 03/02/2020 To The Best Of Your Knowledge Have You Been In Close Proximity To Any Individual Who Tested Positive For COVID-19? No [email or web address] Information not available 03/02/2020 *AWV ONLY* Are You Presently Prescribed Opioid Medication By PCP Or Specialist? If YES -Provider Assess The Benefit For Other, Non-opioid Pain Therapies Instead, Even If The Patient Does Not Have OUD But Is Possibly At Risk. No [email or web address] Information not available 01/10/2022 Have You Recently Traveled To A COVID-19 High Risk Area Or Gathering In The Last 10 Days? No [email or web address] Information not available 12/19/2020 What Was The Date Of Your Most Recent Tobacco Screening? 02/15/2024 [email or web address] Information not available 02/15/2024 How Many Children Do You Have? 2 Meghan Information not available 10/10/2015 Do You Use Your Seat Belt Or Car Seat Routinely? Yes Information not available 11/19/2021 Seat Belts Used Routinely Yes Information not available 10/14/2022 Are You Sexually Active? No Information not available 10/13/2017 Smoke Alarm In Home Yes Information not available 10/14/2022 Do You Have Smoke And Carbon Monoxide Detectors In Your Home? Yes Information not available 11/19/2021 At What Age Did You Start Smoking Tobacco? 1 [email or web address] Information not available 07/31/2022 Are You Passively Exposed To Smoke? No Information not available 06/18/2016 How Much Tobacco Do You Smoke? No [email or web address] Information not available 12/19/2020 General Stress Level Medium Information not available 10/14/2022 Do You Use Sunscreen Routinely? Yes [email or web address] Information not available 03/20/2014 How Many Years Have You Smoked Tobacco? 0 Information not available 07/31/2022 Sex: Unknown Functional Status Question Answer Note LastModified by Organizat ion Details LastModified Time What is your level of alcohol consumption? Occasional [email or web address] Information not available 07/31/2022 Do you or have you ever used smokeless tobacco? Never used smokeless tobacco [email or web address] Information not available 12/19/2020 Are you currently employed? No retired Information not available 10/13/2017 Are you able to walk? [email or web address] Information not available 10/14/2022 Are you able to care for yourself? 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 Never used electronic cigarettes Information not available 10/14/2022 What is your exercise level? Occasional [email or web address] Information not available 01/10/2022 Mental Status None recorded. Family History Relationship Description Onset Age of this Age Resolved Age Notes LastModified by Organization Details LastModified Time Father Hypercholest collinia [email or web address] Not available 12/19 12:58:50 Father Cerebrovascu lar accident [email or web address] Not available 12:58:50 Father Heart disease [email or web address] Not available 12/19 12:58:50 Brother Carcinoma in situ of lung [email or web address] Not available 1 10:47:09 Brother Harmful pattern of use of alcohol [email or web address] Not available 12/19 12:58:51 Brother Malignant neoplasm of lung [email or web address] Not available 12/19 12:58:51 Paternal Grandfather Cerebrovascu lar accident Not available 07/2021 13:50:51 Paternal Grandfather Heart disease Not available 2021 13:50:51 Mother Osteoporosis [email or web address] Not galen ilable 12/19/2020 12:58:51 Mother Heart disease [email or web address] Not available 12/19 12:58:51 Paternal Grandmother Hypertensive disorder [email or web address] Not available 02/2016 10:32:20 Daughter Multiple sclerosis [email or web address] Not available 12/19 12:58:51 Daughter Migraine [email or web address] Not avail able 12/19/2020 12:58:51 Sister Asthma [email or web address] Not available 12/19/2020 12:58:51 Sister Osteoporosis [email or web address] Not galen ilable 12/19/2020 12:58:51 Sister Chronic obstructive pulmonary disease [email or web address] Not available 12/19 12:58:51 Notes:No colon or breast can cer Medical History Condition Response Coronary Artery Disease N Other N Gout N Kidney Stones Y Blood Diseases N Hyperthyroidism N Breast Cancer Y mrsa exposure N Hypothyroidism Y Lung Disease N COPD N Depression Y Developmental or Behavioral Disorders N Defects or Inherited Disease N Breast Problem N Anesthesia Complications N Headaches/Migraines N Anxiety Disorder Y Varicose Veins N Muscle, Joint, or Bone Problems N Obesity Y Vision or Eye Problems N Arthritis N Head Injury/Concussion N Infertility N Polyps N Mental Disorder N Congenital Anomalies N Acid Reflux (GERD) N Cancer Y Stroke N ADHD N Endometriosis N High Cholesterol Y Liver Disease N Fibromyalgia N Headaches N Kidney Disease N Heart Problems N Ear or Hearing Problems N Hospitalizations N Thyroid Problems N GI Problems N Developmental Delay N Acne N Skin Problems N Eating Disorder N Anemia N Constipation N Bladder Problems N Mental Illness N Ovarian Cancer N Diabetes N Bedwetting N Blood Transfusions N Seizures/Epilepsy N Heart Problems/Murmur N Tuberculosis N AIDS/HIV N Congestive Heart Failure (CHF) N Eczema N Diverticulitis N Abuse/Domestic Violence N Asthma Y Allergies N Reflux/GERD N Hepatitis N Heart Disease N Pulmonary Embolism N Hypertension Y Chicken Pox Y Autism Spectrum Disorder (ASD) N Osteoporosis N Gynecological History Statement/Question Response Date of Last Pap Smear 01/29/2011 Date of Last Colonoscopy 08/05/2018 Most Recent Mammogram 02/20/2021 Most Recent Bone Density 01/29/2010 Post Menopausal Bleeding N Obstetrics History GPAL:G 0 P 0 0 0 0 Immunizations Vaccine Type Date Status Note Provider Nam e and Address Organization Details Recorded Time Tdap 6 completed Clementina laguerre [facility] 03/16/2020 14:18:00 Influenza, high-dose, trivalent, PF 6 completed [place] Hill [facility] 07/11/2021 15:10:55 Pneumococcal conjugate PCV 13 6 [place] Lujan [facility] 07/11/2021 15:10:56 Influenza, split virus, trivalent, PF 0 john [email or web address] [facility] 03/16/2020 14:18:00 COVID-19, mRNA, LNP-S, PF, 30 mcg/0.3 mL dose 1 completed G[place] Hill, [facility] 07/11/2021 15:10:55 COVID-19, mRNA, LNP-S, PF, 30 mcg/0.3 mL dose 1 completed G[place] Hill, [facility] 07/11/2021 15:10:56 Influenza, high-dose, quadrivalent, PF 1 completed GERARD Hill, [facility] 07/11/2021 15:10:55 COVID-19, mRNA, LNP-S, PF, 30 mcg/0.3 mL dose 1 completed G[place] Hill, [facility] 07/11/2021 15:10:56 Influenza, high-dose, trivalent, PF 7 completed GERARD Hill, [facility] 07/11/2021 15:10:56 Influenza, high-dose, trivalent, PF 5 completed GERARD Hill, [facility] 07/11/2021 15:10:56 COVID-19, mRNA, LNP-S, PF, 30 mcg/0.3 mL dose, renee-sucrose 2 completed GERARD Robb, [facility] 01/10/2022 13:51:58 Influenza, high-dose, quadrivalent, PF 2 completed G[place]ARD Cui, [facility] 08/14/2023 13:29:59 Influenza, high-dose, quadrivalent, PF 3 completed G[place]ARD Cui, [facility] 08/14/2023 13:33:44 COVID-19, mRNA, LNP-S, bivalent, PF, 30 mcg/0.3 mL dose 2 completed [place] Cui, [facility] 08/14/2023 13:29:59 COVID-19, mRNA, LNP-S, PF, 30 mcg/0.3 mL dose 4 completed Clementina Segundo null, [facility] 11/12/2023 09:54:49 zoster, unspecified formulation 4 completed Clementina Segundo null, [facility] 11/12/2023 09:55:04 Influenza, high-dose, trivalent, PF 4 completed G[place] Robb, [facility] 03/28/2024 08:12:54 SARS-COV-2 (COVID-19) vaccine, UNSPECIFIED 4 completed GERARD Robb, [facility] 03/28/2024 08:13:31 pneumococcal polysaccharide PPV23 8 completed Not Available [facility] 07/30/2019 02:21:28 Influenza, high-dose, trivalent, PF 8 completed Not Available [facility] 07/30/2019 02:22:14 Influenza, high-dose, trivalent, PF 9 completed Not Available [facility] 07/30/2019 02:22:09 Influenza, split virus, trivalent, preservative 4 completed Clementina Segundo null, [facility] 03/16/2020 14:18:00 Tdap 8 completed Clementina Segundo null, [facility] 03/16/2020 14:18:00 Influenza, split virus, trivalent, preservative 8 completed Clementina Segundo null, [facility] 03/16/2020 14:18:00 Influenza, split virus, trivalent, preservative 9 completed Clementina Segundo null, [facility] 03/16/2020 14:18:00 Influenza, split virus, trivalent, preservative 0 completed Clementina Segundo null, [facility] 03/16/2020 14:18:00 Influenza, split virus, trivalent, preservative 1 completed Clementina Segundo null, [facility] 03/16/2020 14:18:00 Influenza, split virus, trivalent, preservative 2 completed Clementina Segundo null, [facility] 03/16/2020 14:18:00 pneumococcal polysaccharide PPV23 3 completed Clementina Segundo null, [facility] 03/16/2020 14:18:00 Influenza, split virus, trivalent, PF 3 completed Clementina Segundo null, [facility] 03/16/2020 14:18:00 zoster live 3 completed Clementina Segundo null, [facility] 03/16/2020 14:18:00 Past Encounters Encounter ID Performer Location Encounter Start Date Encounter Closed Date Diagnosis/Indication Diagnosis SNOMED-CT Code Diagnosis ICD10 Code Diagnosis Note [id number] [facility]Comm [facility] [id number] [facility] [facility] [place] [address] 10/16/2006 00:00:00 [id number] autoEComm erce [id number] [facility] [facility] [place] [address] 01/06/2007 00:00:00 [id number] autoEComm erce [id number] [facility] [facility] [place] [address] 02/22/2007 00:00:00 [id number] autoEComm erce [id number] [facility] [facility] [place] [address] 06/29/2007 00:00:00 [id number] autoEComm erce [address] [facility] [facility] [place] [address] 09/29/2007 00:00:00 [id number] autoEComm erce [id number] [facility] [facility] [place] [address] 01/26/2008 00:00:00 [id number] autoEComm erce [address] [facility] [address] [place] [address] 06/28/2008 00:00:00 [id number] autoEComm erce [address] [facility] [address] [place] [address] 11/29/2008 00:00:00 [id number] autoEComm erce [address] [facility] [address] [place] [address] 06/04/2009 00:00:00 [id number] autoEComm erce [address] [facility] [address] [place] [address] 11/07/2009 00:00:00 [id number] autoEComm erce [address] [facility] [address] [place] [address] 12/20/2009 00:00:00 [id number] autoEComm erce [address] [facility] [place] [address] 01/11/2010 00:00:00 [id number] autoEComm erce [address] [facility] [place] [address] 06/13/2010 00:00:00 [id number] autoEComm erce [address] [facility] [place] [address] 09/16/2010 00:00:00 [id number] autoEComm erce [address] [facility] [place] [address] 01/29/2011 00:00:00 [id number] autoEComm erce [address] [facility] [place] [address] 06/26/2011 00:00:00 [id number] autoEComm erce [address] [facility] [place] [address] 12/26/2011 00:00:00 [id number] autoEComm erce [address] [facility] [place] [address] 04/08/2012 00:00:00 [id number] [place], [place] [address] 08/13/2012 00:00:00 [id number] autoEComm erce [address] [place], [place] [address] 12/13/2012 00:00:00 [id number] autoEComm erce [address] [place], [place] [address] 04/15/2013 00:00:00 [id number] autoEComm erce [address] [facility] [address] [place], [place] [address] 08/13/2013 00:00:00 [id number] autoEComm erce [address] [facility] [place], [place] [address] 08/19/2013 00:00:00 [id number] autoEComm erce [address] [facility] [place], [place] [address] 10/17/2013 00:00:00 [id number] autoEComm erce [address] [facility] [place] [address] 12/21/2013 00:00:00 [id number] Brielle childress MD Main Office [id number] [facility] [address] [place] [place], [place] [address] 03/20/2014 11:05:25 03/20/2014 11:48:01 Asthma [id number] stable on steroid inhalers, lungs clear, is on puulmicort and that is helping Hypertensive disorder 17254022 BP well controlled continue Hypothyroidism 48650092 check labs, last thyroid labs a year ago Anxiety state [id number] on meds and they help [id number] Brielle childress MD Main Office [id number] [facility] [address] [place], [place] [address] 07/19/2014 12:39:16 07/19/2014 13:23:25 Essential hypertension 60138454 BP well controlled , nl labs including K on 03/26 continue meds Hypothyroidism 69960192 check labs, last thyroid labs 03/26 Osteoarthritis 717981116 pain in knees, encouraged more exercise Depressive disorder 12433798 mood is low, pt will discuss treatment/ meds with her psychiatri and her counselor [id number] Brielle childress MD Main Office [id number] [facility] [address] [place] [address] 11/20/2014 12:39:36 11/20/2014 13:16:01 Essential hypertension 81052673 BP well controlled , check labs Depressive disorder 62310931 continue meds Asthma 556184469 pt with a flare of asthma by hx, will taek pulmicort 2 puffs bid consistent ly and add in zyrtec. Hypothyroidism 89755809 continue thyroid meds [id number] Brielle childress MD Main Office [id number] [facility] [address] [place] [address] 02/01/2015 10:34:25 02/01/2015 11:23:57 Asthma [id number] pt is improved but still room to go, needs to add zyrtec, continue pulmicort and singulair, asthma is better controlled . Environmental allergy [id number] add zyrtec Essential hypertension 94819664 BP well controlled , continue meds [id number] Brielle childress MD Main Office [id number] [facility] [address] [place] [address] 05/31/2015 13:18:05 05/31/2015 14:43:33 Adult health examination [id number] Z00.00 utd on screening, pt wants to hold off on pap, nl in past Asthma 934438729 J45.90 9 ontinue pulmicort and singulair, asthma is better controlled . Essential hypertension 36857189 I10 BP well controlled , continue meds Single mary or depressive episode, in full remission 174701754 F32.5 on meds and mood is well treated. Hypothyroidism 84845701 E03.9 continue thyroid meds Obesity 462960345 E66.9 pt knows she overeats, discussed ideas Pure hypercholesterolemia 464982009 E78.0 Skin lesion 75327880 L98 .9 on face, recurrence of keratosis [id number] Brielle childress MD Main Office [id number] [facility] [address] [place] [address] 10/10/2015 14:53:47 10/10/2015 15:41:18 Hypertensive disorder 96923999 I10 BP well controlled continue, work on [employer] Single mary or depressive episode, in full remission 897314596 F32.5 on meds and mood is well treated. Asthma 411812255 J45.90 9 ontinue pulmicort and singulair, asthma is better controlled . Hypothyroidism 53423935 E03.9 continue thyroid meds Laceration - injury [id number] T14.8 5 chris, pt to get them removed here in 10 days, call if any changes, mild headache, no LOC, watch for any neurologic al signs, ptt o take it easy [id number] Xochitl Mi PA-C Main Office [address] [facility] [address] [facility] [place] [address] 10/19/2015 10:26:59 10/19/2015 10:50:49 Scalp laceration 592934529 S01.01XA See procedure note. Removal of chris 25332 001 Z48.02 [id number] Brielle childress MD Main Office [address] [place] [address] 02/07/2016 09:57:04 02/07/2016 11:06:14 Essential hypertension 44907303 I10 BP well controlled , continue meds Asthma 296950821 J45.90 9 ontinue pulmicort and singulair, asthma is better controlled . Hypothyroidism 71090833 E03.9 continue thyroid meds Pure hypercholesterolemia 239970530 E78.0 Osteoarthritis 344091610 M19.90 pain in knees, encouraged more exercise Body mass index 30+ - obesity 113895687 E66.9 [id number] Brielle childress MD Main Office [address] [place] [address] 06/18/2016 09:52:09 06/18/2016 11:08:30 Adult health examination 833641658 Z00.00 utd on screening, pt wants to hold off on pap, nl in past Single mary or depressive episode, in full remission 748049805 F32.5 on meds and mood is well treated. Asthma 673971223 J45.90 9 asthma is doing pretty well Hypothyroidism 80247795 E03.9 continue thyroid meds Essential hypertension 29637200 I10 BP well controlled , continue meds Advance di rective discussed with patient 920666885 Z71.89 I discussed MOLST and health care proxy form. I gave pt MOLST form and proxy form, pt will fill out, discuss MOLST form with proxy and sign and return to our office Hypercholesterolemia 136 53813 E78.2 Body mass index 30+ - obesity 964808110 E66.9 talked about diet adn exercise. [id number] Brielle childress MD Main Office 3640 [facility] [address] [place] [address] 12/17/2016 14:07:14 12/17/2016 15:26:08 Essential hypertension 63267245 I10 BP well controlled , continue meds Asthma 017439610 J45.90 9 asthma is doing pretty well, use a spacer if using the proair Single mary or depressive episode 442656035 F32.9 well controlled on meds, continue Hypothyroidism 56899128 E03.9 continue thyroid meds Body mass index 30+ - obesity 987653321 E66.9 talked about diet adn exercise. [id number] Brielle childress MD Main Office [address] [address] 05/20/2017 12:39:12 05/20/2017 14:06:59 Essential hypertension 76542620 I10 BP well controlled , continue meds Asthma 186703245 J45.90 9 stable, continue inhalers Single mary or depressive episode, in full remission 790124582 F32.5 on meds and mood is well treated. she notes it flares in the winter. is off wellbutrin in the spring. Hypothyroidism 67817705 E03.9 continue thyroid meds level in 10/27 is good Body mass index 30+ - obesity 678627709 E66.9 Z68.35 [id number] Brielle childress MD Main Office [address] [address] 10/13/2017 14:19:11 10/13/2017 15:48:17 Adult health examination 377940365 Z00.00 utd on screening, pt wants to hold off on pap, nl in past Hypothyroidism 23551201 E03.9 continue thyroid meds level in 10/27 is good Essential hypertension 07744813 I10 BP well controlled , continue meds Hepatitis C screening 41 5065838 Z11.59 Administra tion of pneumococcal vaccine 85445293 Z23 Osteoarthritis 832625441 M19.90 pain in knees, encouraged more exercise Single mary or depressive episode, in full remission 311665026 F32.5 depression is stable, onn prozac 40mg a day, I will take over pt is in counseling Asthma 061796722 J45.90 9 stable, continue inhalers Body mass index 30+ - obesity 632475659 E66.9 Z68.35 [id number] Brielle childress MD Main Office 3640 [facility] [address] [place] [address] 04/12/2018 12:38:02 04/12/2018 13:15:25 Essential hypertension 31289174 I10 BP well controlled , continue meds Influenza vaccine needed 6048946254 106 Z23 Asthma 176943413 J45.90 9 stable, continue inhalers Lesion of skin of face 2674410701 06 L98.9 recent removal of skin lesion on right cheek Single mary or depressive episode, in full remission 019745063 F32.5 depression is stable, onn prozac 40mg a day, I will take over pt is in counseling Hypothyroidism 36912192 E03.9 continue thyroid meds Body mass index 30+ - obesity 668120019 E66.9 Z68.37 work on smaller portions and weight loss [id number] Brielle childress MD Main Office 3640 [facility] [address] [place] [address] 10/22/2018 12:54:56 10/22/2018 13:44:05 Adult health examination 131857404 Z00.00 utd on screening, encouraged more exercise, pt is not prone to that. Screening for malignant neoplasm of breast 579452873 Z12.39 pt to arrange Essential hypertension 61229925 I10 BP well controlled , continue meds Plantar fasciitis 20280212 003 M72.2 bottom of feet hurt, she will do stretches and order brace Body mass index 30+ - obesity 055219203 E66.9 Z68.35 work on smaller portions and weight loss [id number] Brielle childress MD Main Office 3640 [facility] [address] [place] [address] 04/11/2019 12:52:51 04/11/2019 13:45:53 Essential hypertension 09860940 I10 BP well controlled , continue meds Influenza vaccine needed 5745527800 106 Z23 Single mary or depressive episode, in full remission 276083726 F32.5 depression is stable, onn prozac 40mg a day, I will take over pt is in counseling Hypothyroidism 66907005 E03.9 continue thyroid meds Osteopenia 878633090 M85 .80 due Body mass index 30+ - obesity 827132617 E66.01 Z68.41 pt with a BMI of 39.1 with complicati on of htn, work on smaller portions and weight loss [id number] Brielle childress MD Main Office [address] [place] [address] 10/24/2019 15:29:55 10/24/2019 15:53:51 Essential hypertension 18630860 I10 BP well controlled , continue meds, is not on KCL.will check level and hold off on taking Major depr ession single episode, in partial remission 48319717 F32.4 is on fluoxetine , mood is hanging in there Hypothyroidism 85917910 E03.9 continue thyroid meds Counseling 234115538 Z71 .9 Health advice, education or counseling done for COVID 19. taking [id number] Brielle childress MD [facility] [address] [facility] [address] [facility] [place] [address] 11/22/2019 08:56:26 11/22/2019 12:59:20 Major depression single episode, in partial remission 11504336 F32.4 mood is low due to isolation form the Covid pandemic, pt is keeping safe, will consider seeing one friend who has taken care of decreasing exposure. start wellbutrin and continue fluoxetine . pt to let me know if tremor flares and knows she may feel some short term anxiety. no suicidal thoughts or plans, continue fluoxetine Essential hypertension 81816013 I10 BP well controlled , continue meds, is not on KCL.will check level and hold off on taking Hypothyroidism 77682943 E03.9 continue thyroid meds [id number] Brielle childress MD [facility] [address] [facility] [address] [place] [address] 12/09/2019 08:09:09 12/09/2019 10:49:24 Adult health examination 278101086 Z00.00 mammogram is overdue, encouraged more exercise, pt is not prone to that. shr is adopting a cat. Screening for malignant neoplasm of breast 914175437 Z12.39 pt to arrange, she is very overdue Hypothyroidism 48729738 E03.9 continue thyroid meds. check labs Essential hypertension 99844618 I10 BP well controlled , continue meds, is not on KCL.will check level and hold off on taking Pure hypercholesterolemia 318087561 E78.00 Major depr ession single episode, in partial remission 44339646 F32.4 doing much better on wellbutrin , continue [id number] Brielle childress MD Main Office 3640 [facility] [address] [place] [address] 03/02/2020 15:49:31 03/02/2020 16:43:01 Essential hypertension 78079023 I10 BP well controlled , continue meds Body mass index 30+ - obesity 893190068 E66.01 Z68.41 pt lost over 10lbs, BMI down to 37 continue weight loss Essential tremor 0664658 [address] Melendez 2015. is on metoprolol . Tremor of left hand and head worsening, pt will set up appt for eval no gait or balance problems, this has been dx with essential tremor, interferes with reading, writing and find motor [id number] Brielle childress MD Main Office 3640 [facility] [address] [place] [address] 12/19/2020 12:51:46 12/19/2020 13:37:31 Adult health examination 971374916 Z00.00 mammogram is overdue, encouraged more exercise, Essential hypertension 64909017 I10 BP well controlled , continue meds check labs Hypothyroidism 31711596 E03.9 continue thyroid meds. check labs Screening for malignant neoplasm of breast 116658919 Z12.39 pt to arrange, she is very overdue Pain of le ft shoulder joint 0240277389 1551171 M25.512 will refer to PT has had limited ROm for months, hurts to sleep on [id number] Brielle childress MD Main Office 3640 [facility] [address] [place] [address] 04/17/2021 14:04:00 04/17/2021 15:12:22 Body mass index 30+ - obesity 631826043 E66.01 Discussed portion size, decreasing goodies and carbs. Major depr ession single episode, in partial remission 76045713 F32.4 controlled on meds Pre-surger y evaluation 000278131 Z01.818 Patient is at moderate risk for cardiopulm onary complicati ons with planned procedure based on comorbidit ies, exertional tolerance and overall procedure risk. Patient advised to avoid aspirin and NSAIDS, fish oil, vitamin E for 7 days prior. She will be kept overnight to monitor respirator y status as at risk for obesity hyopventil ation. She will take meds with a sip of water in the am. . May proceed to scheduled surgery as planned. Castro 0.1% Pt had covid vaccine Anxiety state 243318368 F41.1 controlled on meds Essential hypertension 04695804 I10 BP is controlled on present regimen, continue all meds at current dosages. Continue with low salt diet, exercise [id number] Brielle childress MD Main Office 3640 [facility] [address] [place] [address] 07/11/2021 14:56:33 07/11/2021 16:02:13 Essential hypertension 35869429 I10 BP well controlled , continue meds is interested in [facility] will arrange Hypothyroidism 36583982 E03.9 continue thyroid meds. Major depr ession in full remission 75521857 F32.5 mood is good, she is on medication Pain of le ft shoulder joint 9741861883 4579586 M25.512 will refer to PT has had limited ROm for months, hurts to sleep on Vertigo 496942021 R42 no hearing concerns, mild if not resolving will refer to vestibular rehab [id number] Amaury Do MD [facility] [address] [facility] [address] [facility] [place] [address] 11/19/2021 08:46:41 11/19/2021 15:40:14 COVID-19 115283172 U07.1 Counseling 491107604 Z71 .9 Health advice, education or counseling done for COVID 19 Nasal congestion 9341644 0 R09.81 [id number] Brielle childress MD Main Office 3640 [facility] [address] [place] [address] 01/10/2022 13:47:28 01/10/2022 14:30:42 Adult health examination 732989805 Z00.00 all screening is utd needs to get more active Essential hypertension 78345003 I10 BP well controlled , continue meds Hypothyroidism 46378616 E03.9 continue thyroid meds. History of malignant neoplasm of breast 449420001 Z85.3 bilateral mastectomy History of bilateral mastectomy 992826589 Z90.13 Anxiety 26021031 F41.9 takes as needed, for sleep or anxiety Pain of le ft shoulder joint 3945331943 4096429 M25.512 will refer to PT has had limited ROm for months, hurts to sleep on Hypertensi on monitoring status 533958811 I10 Active [id number] LOLA MENDEZ MD [facility] [address] [facility] [address] [place] [address] 06/15/2022 11:11:39 06/18/2022 15:53:00 COVID-19 164120219 U07.1 Tylenol OTC, not to exceed package insert for pain or fever q4-6h advised prn. Counselled on not exceeding more than 3g/day. Throat Lozenges otc prn for sore throat saltwater gargle adequate hydration enforced saline sprays humidifier use enforced. paxlovid was not sent, last available kidney function reviewed GFR is 56ordered dexamethas one as pt has history of asthma -> pt advised only to take if starts having SOB Also advised can use a teaspoon honey for cough isolation precaution discussed precaution advised if any difficulty breathing or tmax 103 > go to nearest ED [id number] Brielle childress MD Main Office 3640 [facility] [address] [place] [address] 07/31/2022 13:53:24 07/31/2022 14:30:17 Essential hypertension 62519413 I10 BP well controlled , continue meds Hypertensi on monitoring status 246798668 I10 Active Hypothyroidism 83533608 E03.9 continue thyroid meds. Major depr ession in full remission 07547693 F32.5 mood is good, she is on medication continue meds work on weight loss Moderate p ersistent asthma 173767941 J45.40 use inhalers [id number] LOLA MENDEZ MD Main Office [address]40 [facility] [address] [facility] [address] 10/14/2022 12:54:59 10/14/2022 13:31:27 Pain of left shoulder joint 1509307796 7785038 M25.512 - chronic problem, pt had done physical therapy in the past as well as injections with little relief- pt will be undergoing replacemen t on 10/21/22- pt advised PT after surgery Pre-surger y evaluation 104443631 Z01.818 Pre-Surgic al Evaluation /Surgical Clearance for left sided total shoulder replacemen t under [place] with Dr. Vang on 10/21/22- Clinical cardiac predictor( s): HTN, HLD, obesity- Surgical risk level: Moderate- Functional Status: EXCELLENT- Revised Cardiac Risk Index (RCRI) for Pre-Operat kay Risk: 0- CASTRO Score: 0.2 % Risk of myocardial infarction or cardiac arrest, intraopera tively or up to 30 days post-op- Vitals and previous labs reviewed- Imaging: Not indicated- EKG: NSR with HR 63- Labs ordered per surgeon recs- Informed patient NPO at midnight- Advised to avoid aspirin and NSAIDS- Paperwork completed for patient- Plan of care discussed with patient.- Medical clearance: will clear after blood work is reviewed [id number] LOLA MENDEZ MD Main Office [address] [facility] [address] [place] [address] 02/12/2023 13:30:54 02/12/2023 14:10:11 Adult health examination 404269096 Z00.00 Health Maintenanc e FemaleA) Patient was counseled on healthy diet, exercise and nutrition due to BMI of 35 B) ScreeningL ast Mammogram: start at age 50 stop at 74Date: 02/27/2021 Result: BIRADS-4Ne xt: s/p double mastectomy Last Pap smear: aged out Last Colonoscop y: start at age 45-75Date: 08/05/2018 Result: tubular adenomaNex t: 5 years, 07/2023 Last DEXA scan:Date: 05/12/2019 Result: osteopenia Next: 04/2021-fo llowed by oncology -> could have been done in november based on last oncology note will request results C) Vaccines:I nfluenza: 03/31/2022 TdAP: 10/10/2015 Zoster: 05/13/2013 PCV13: 05/19/2016 PPSV23: 08/13/2012 , 10/14/2017 COVID: 09/09/2020 , 09/30/2020 , 05/23/2021 , 11/12/2021 , 03/31/2022 D) Routine blood work completedE ) Updated patient's history RTC in one year for annual exam or sooner if any acute complaints Anxiety state 125773042 F41.1 - NOE-7 score of 0- pt will take lorazepam 0.5mg as needed- c/w bupropion 150mg QD and fluoxetine 40mg QD- counsellin g provided Essential hypertension 95060827 I10 - at goal- BP today was 112/68- pt is on [facility] however does forget to take to BP, reinforced to take 5X- c/w propanolol ER 120mg QD and spironolac tone 50mg QD- will check BMP Pt counselled on:-Dietar y Approaches to Stop Hypertensi on (DASH) is an eating plan rich in fruits, vegetables , whole grains, fish, poultry, nuts, legumes, and low-fat dairy. These foods are high in ta nutrients such as potassium, magnesium, calcium, fiber, and protein. -Advised continued adherence to medication s and low salt diet - extensive counsellin g done regarding dietary habits. -Encourage d regular aerobic exercise 30 min for 4-5 x week. -BP monitoring at home advised to bring log at every visit -Side-effe cts of high BP can cause Stroke, Heart attack and even d/w pt -D/w pt when to call 911 or reach out to Health care provider: >Think you are having a reaction to a medicine you are taking. >Have headaches that keep coming back (recurring ). >Feel dizzy. >Have swelling in your ankles. >Have trouble with your vision. Hypothyroidism 91835563 E03.9 - blood done on 01/2022: TSH-3.76 and fT4-1.54- c/w levothyrox ine 25mcg Pure hypercholesterolemia 615268284 E78.00 - was last checked in 2014- ordered repeat lipid panel Pt counselled on:- Eat a heart-heal thy diet - Choose healthy fats. Avoid saturated fats that are found primarily in red meat, monique, sausage, and full-fat dairy products. Advised to choose lean proteins like chicken, turkey, and fish when possible. Switch to low-fat or fat-free dairy. And use monounsatu rated fats like olive and canola oil for cooking. - Cut out the trans fats. Trans fats are found in fried food and processed foods, like cookies, crackers, and other snacks. - Eat more omega-3s. Counseled on eating more fish, including salmon, mackerel, steele ,nuts and seeds, like walnuts and flax seeds. - Increase your fiber intake. By eating more oats, brain, fruits, beans, and vegetables , can lower your LDL cholestero l levels. - Eat more fruits and veggies. Asthma 261154788 J45.90 9 - under good control- pt will take albuterol as needed which is rarely- c/w singular 10mg QD- c/w pulmicort 180 mcg 2 puff BID Depressive disorder 7591 2792 F32.A - PHQ-9 score of 3- c/w bupropion 150mg QD and fluoxetine 40mg QD- counsellin g provided- denies SI/HI History of malignant neoplasm of breast 110753875 Z85.3 - invasive ductal carcinoma of the left breast, estrogen and progestero ne receptor positive, HER-2/levy negative- s/p bilateral mastectomi es done in 2020- c/w anastrazol e (started in 05/2021) [id number] LOLA MENDEZ MD Main Office [address] [place] [address] 08/14/2023 13:12:51 08/14/2023 13:55:33 Anxiety state 692358891 F41.1 - NOE-7 score of 0 done on last visit- pt will take lorazepam 0.5mg as needed- c/w bupropion 150mg QD and fluoxetine 40mg QD- counsellin g provided Depressive disorder 8121 9007 F32.A - in remission- PHQ-9 score of 3,d one on lasts visit- c/w bupropion 150mg QD and fluoxetine 40mg QD- counsellin g provided- denies SI/HI Essential hypertension 25148383 I10 - at goal- BP today was 103/65- pt is on [facility] however does forget to take to BP, reinforced to take 5X> average [facility] for July- c/w propanolol ER 120mg QD and spironolac tone 50mg QD- will check BMP Pt counselled on:-Dietar y Approaches to Stop Hypertensi on (DASH) is an eating plan rich in fruits, vegetables , whole grains, fish, poultry, nuts, legumes, and low-fat dairy. These foods are high in ta nutrients such as potassium, magnesium, calcium, fiber, and protein.-A dvised continued adherence to medication s and low salt diet - extensive counsellin g done regarding dietary habits.-En couraged regular aerobic exercise 30 min for 4-5 x week.-BP monitoring at home advised to bring log at every visit-Side -effects of high BP can cause Stroke, Heart attack and even d/w pt-D/w pt when to call 911 or reach out to Health care provider:> Think you are having a reaction to a medicine you are taking.>Ardon ve headaches that keep coming back (recurring ).>Feel dizzy.>Hav e swelling in your ankles.>Ardon ve trouble with your vision. Hypothyroidism 52124219 E03.9 - blood done on 01/2022: TSH-3.76 and fT4-1.54- c/w levothyrox ine 25mcg Pure hypercholesterolemia 325053437 E78.00 - lipid panel 02/2023: cholestero l-262, triglyceri de-120, HDL-72 and LDL-166- ASDCVD score of 12.4%- c/w rosuvastat in 10mg QD- will recheck levels Pt counselled on:- Eat a heart-heal thy diet- Choose healthy fats. Avoid saturated fats that are found primarily in red meat, monique, sausage, and full-fat dairy products. Advised to choose lean proteins like chicken, turkey, and fish when possible. Switch to low-fat or fat-free dairy. And use monounsatu rated fats like olive and canola oil for cooking.- Cut out the trans fats. Trans fats are found in fried food and processed foods, like cookies, crackers, and other snacks.- Eat more omega-3s. Counseled on eating more fish, including salmon, mackerel, steele ,nuts and seeds, like walnuts and flax seeds.- Increase your fiber intake. By eating more oats, brain, fruits, beans, and vegetables , can lower your LDL cholestero l levels.- Eat more fruits and veggies. Asthma 794985002 J45.90 9 - currently not under good control- pt will take albuterol as needed which is rarely- pt was on singular 10mg QD- switched pulmicort to symbicort History of malignant neoplasm of breast 204929797 Z85.3 - invasive ductal carcinoma of the left breast, estrogen and progestero ne receptor positive, HER-2/levy negative- s/p bilateral mastectomi es done in 2020- c/w anastrazol e (started in 05/2021) [id number] LOLA MENDEZ MD Main Office [address] [address] 02/15/2024 12:50:33 02/15/2024 13:37:42 Adult health examination 635588684 Z00.00 Health Maintenanc e FemaleA) Patient was counseled on healthy diet, exercise and nutrition due to BMI of 33.1 B) ScreeningL ast Mammogram: s/p double mastectomy Last Pap smear: aged out Last Colonoscop y: start at age 45-75Date: 08/05/2018 Result: tubular adenomaNex t: 5 years, 07/2023 (pt underwent colonoscop y in November 30, 2023-Dr. Mojica, will request) Last DEXA scan:Date: 11/24/2022 Result: osteopenia Next: 11/2024-fol lowed by oncology C) Vaccines:I nfluenza: 04/15/2023T dAP: 10/10/2015 Zoster: 05/13/2013 , 11/10/2023 CV13: 05/19/2016 PPSV23: 08/13/2012 , 10/14/2017 COVID: 09/09/2020 , 09/30/2020 , 05/23/2021 , 11/12/2021 , 03/31/2022 , 11/10/2023 D) Routine blood work completedE ) Updated patient's history RTC in one year for annual exam or sooner if any acute complaints Anxiety state 540606426 F41.1 - NOE-7 score of 0 done on last visit- pt will take lorazepam 0.5mg as needed- c/w bupropion 150mg QD and fluoxetine 40mg QD- counsellin g provided Essential hypertension 06911333 I10 - at goal- BP today was 117/72- pt is on [facility] however does forget to take to BP, reinforced to take 5X> average [facility] for January- c/w propanolol ER 120mg QD and spironolac tone 50mg QD Pt counselled on:-Dietar y Approaches to Stop Hypertensi on (DASH) is an eating plan rich in fruits, vegetables , whole grains, fish, poultry, nuts, legumes, and low-fat dairy. These foods are high in ta nutrients such as potassium, magnesium, calcium, fiber, and protein.-A dvised continued adherence to medication s and low salt diet - extensive counsellin g done regarding dietary habits.-En couraged regular aerobic exercise 30 min for 4-5 x week.-BP monitoring at home advised to bring log at every visit-Side -effects of high BP can cause Stroke, Heart attack and even d/w pt-D/w pt when to call 911 or reach out to Health care provider:> Think you are having a reaction to a medicine you are taking.>Ardon ve headaches that keep coming back (recurring ).>Feel dizzy.>Hav e swelling in your ankles.>Ardon ve trouble with your vision. Hypothyroidism 96721052 E03.9 - blood done on 01/2022: TSH-3.76 and fT4-1.54- c/w levothyrox ine 25mcg Pure hypercholesterolemia 032200221 E78.00 - improved- lipid panel 08/2023: cholestero l-135, triglyceri de-67, HDL-63 and LDL-59- c/w rosuvastat in 10mg QD Pt counselled on:- Eat a heart-heal thy diet- Choose healthy fats. Avoid saturated fats that are found primarily in red meat, monique, sausage, and full-fat dairy products. Advised to choose lean proteins like chicken, turkey, and fish when possible. Switch to low-fat or fat-free dairy. And use monounsatu rated fats like olive and canola oil for cooking.- Cut out the trans fats. Trans fats are found in fried food and processed foods, like cookies, crackers, and other snacks.- Eat more omega-3s. Counseled on eating more fish, including salmon, mackerel, steele ,nuts and seeds, like walnuts and flax seeds.- Increase your fiber intake. By eating more oats, brain, fruits, beans, and vegetables , can lower your LDL cholestero l levels.- Eat more fruits and veggies. Major depr ession in remission 97980957 F32.5 - pt mentions it is worsening- PHQ-9 score of 8- c/w bupropion 150mg QD and fluoxetine 40mg QD- counsellin g provided- denies SI/HI- pt referred to psychiatry as she would like to see a specialist History of malignant neoplasm of breast [id number] Z85.3 - invasive ductal carcinoma of the left breast, estrogen and progestero ne receptor positive, HER-2/levy negative- s/p bilateral mastectomi es done in 2020- c/w anastrazol e (started in 05/2021) Asthma [id number] J45.90 9 - currently not under good control- pt will take albuterol as needed which is rarely- pt was on singular 10mg QD- switched pulmicort to symb[facility]ort [facility] ed risk for falls [id number] Z91.81 - pt walks down the stairs backwards due to pain in her knees- pt also had a fall this year Pain of le ft knee joint [id number] 47729 M25.562 - bilateral knees- to help with the pain will try a course of meloxicam 15mg as needed Body mass index 30+ - obesity 897692959 Z68.33 - BMI of 33.1 Obesity [id number] E66.9 - Cut down on (limit) fast foods, sweets, and processed snack foods.- Limit alcohol intake to no more than 1- 2 drinks a day for men. One drink equals 12 oz of beer, 5 oz of wine, or 1 oz of hard liquor.- Keep a weight loss journal and keep track of the food and portions that you eat.- The exercise that you do- 4 times a week or 150 minutes cumulative of moderate exercise recommende d. [id number] Drew Birch MD Main Office [address] [address] 04/13/2024 10:45:43 04/13/2024 11:10:28 Essential hypertension [id number] I10 in office BP of 102/65-c/w current regimen-wa s advised by surgeon to take morning medication prior to surgery Hypothyroidism [id number] E03.9 will check thyroid levels-sta ble, asymptomat ic Cataract [id number] H26.9 pre-operat kay medical clearance for cataract surgery of the left eye on 05/04/[address] José Luis Rincon ( ). Under topical anesthesia . Pre-surger y evaluation [id number] Z01.818 No medical contraindi cations to proposed procedure. Marleny Perioperat kay Cardiac Risk was calculated and the risk for perioperat kay TN is 0.1%. May proceed to surgery as planned. [id number] LOLA MENDEZ MD Main Office [address] [address] 08/18/2024 13:24:36 08/18/2024 14:03:40 Anxiety state [id number] F41.1 - stable- pt will take lorazepam 0.5mg as needed- c/w bupropion 150mg QD and fluoxetine 40mg QD- counsellin g provided Essential hypertension [id number] I10 - at goal- BP today was 130/78- pt is on [facility] however does forget to take to BP, reinforced to take 5X> average [facility] for July- c/w propanolol ER 120mg QD and spironolac tone 50mg QD Pt counselled on:-Dietar y Approaches to Stop Hypertensi on (DASH) is an eating plan rich in fruits, vegetables , whole grains, fish, poultry, nuts, legumes, and low-fat dairy. These foods are high in ta nutrients such as potassium, magnesium, calcium, fiber, and protein.-A dvised continued adherence to medication s and low salt diet - extensive counsellin g done regarding dietary habits.-En couraged regular aerobic exercise 30 min for 4-5 x week.-BP monitoring at home advised to bring log at every visit-Side -effects of high BP can cause Stroke, Heart attack and even d/w pt-D/w pt when to call 911 or reach out to Health care provider:> Think you are having a reaction to a medicine you are taking.>Ardon ve headaches that keep coming back (recurring ).>Feel dizzy.>Hav e swelling in your ankles.>Ardon ve trouble with your vision. Hypothyroidism 59064119 E03.9 - blood done on 04/2024: TSH-6.290 and fT4-1.33- c/w levothyrox ine 25mcg Pure hypercholesterolemia 309168440 E78.00 - improved- lipid panel 08/2023: cholestero l-135, triglyceri de-67, HDL-63 and LDL-59- c/w rosuvastat in 10mg QD Pt counselled on:- Eat a heart-heal thy diet- Choose healthy fats. Avoid saturated fats that are found primarily in red meat, monique, sausage, and full-fat dairy products. Advised to choose lean proteins like chicken, turkey, and fish when possible. Switch to low-fat or fat-free dairy. And use monounsatu rated fats like olive and canola oil for cooking.- Cut out the trans fats. Trans fats are found in fried food and processed foods, like cookies, crackers, and other snacks.- Eat more omega-3s. Counseled on eating more fish, including salmon, mackerel, steele ,nuts and seeds, like walnuts and flax seeds.- Increase your fiber intake. By eating more oats, brain, fruits, beans, and vegetables , can lower your LDL cholestero l levels.- Eat more fruits and veggies. [facility] risk for falls [id number] Z91.81 - pt walks down the stairs backwards due to pain in her knees- pt also had a fall this year Major depr ession in remission [id number] F32.5 - pt mentions it is worsening- c/w bupropion 150mg QD and fluoxetine 40mg QD- counsellin phil provided- denies SI/HI- pt referred to psychiatry as she would like to see a specialist -> awaiting appoitment s Asthma [id number] J45.90 9 - currently not under good control- pt will take albuterol as needed which is rarely- pt was on singular 10mg QD- switched pulmicort to symbicort Pain of le ft knee joint [id number] 31504 M25.562 - bilateral knees- meloxicam 15mg did not provide relief- taking the naproxen once a day and tylenol as needed- pt does not want to see orthopedic s at this time, will message MD when ready- please note patient is also having pain hips and feet History of malignant neoplasm of breast [id number] Z85.3 - invasive ductal carcinoma of the left breast, estrogen and progestero ne receptor positive, HER-2/levy negative- s/p bilateral mastectomi es done in 2020- c/w anastrazol e (started in 05/2021) Chronic tremor [id number] R25.1 - takes topiramate 50mg BID- also takes propanolol 120mg QD- follows with neurology, will be seeing in January 2025 Health Concerns Section Related Observation LastModified by Organization Detai ls LastModified Time None Recorded Concern Status LastModified by Organization Details LastModified Time None Recorded Advance Directives Directive Y: HCP Payers Insurance Date Sequence Insurance Name Policy Number Policy Bradford Covered Member ID Bradford Member ID Guarantor Name 01/16/2025 2 [employer] - PLAN 1 (MEDICARE SUPPLEMENT) [id number] Selina Duke [id number] Selina Duke 10/14/2022 2 [facility] (MEDICARE SUPPLEMENT) Selina Duke [id number] Selina Duke 01/16/2025 1 MEDICARE B-[place]: [employer] Selina Duke [id number] Selina Duke 10/14/2022 1 [employer] [id number] Selina Duke [id number] Selina Duke Notes Date Note Type Note Provider Name and Address Organization Details Recorded Time 02/12/2023 text/html Medicare Annual Wellness VisitReported bypatient.Diet and Nutrition:healthy diet; discussed vitamin and supplement use Fracture Risk:history of fractures Physical Activity:discussed exercise habits; pt going to [employer] doing bicycle Depression Risk:never feels sad, empty, or tearful; no loss of interest in activities; no loss of energy Orientation:no disorientation to time; no disorientation to date; no disorientation to place Concentration and Memory:no decreased concentrating ability; no memory lapses or loss;forgetting words Speech/Motor difficulties:no speech difficulties; no difficulty expressing formulated concepts; no difficulty with fine manipulative tasks; no difficulty writing/copying; no slowed reaction time; does not knock things over when trying to pick them up Hearing:no loss of hearing Vision:no vision problems Activities of Daily Living:able to bathe with limited or no assistance; able to contol urination and bowels; able to dress with limited or no assistance; able to feed self with limited or no assistance; able to get out of chair or bed with limited or no assistance; able to groom with limited or no assistance; able to toilet with limited or no assistance Instrumental Activities of Daily Living:able to do house work with limited or no assistance; able to grocery shop with limited or no assistance; able to manage medications with limited or no assistance; able to manage money with limited or no assistance; able to prepare meals with limited or no assistance; able to use the phone with limited or no assistance Falls Risk Assessment:no frequent falls while walking; no fall in the past year; no fall since last visit; no dizziness/vertigo Home Safety:no unsafe bimal hazzards; no unsafe stairs; use of seatbelts; has hand bars in the bathroom/shower; good lighting in the home Selina Duke is a 72 year old F who presented to the clinic for her medicare examination. Visit Type: Annual How would you rate your health? Good Have you been discharged from the hospital recently? YesDate of Discharge: pt has left shoulder replacement on 10/2022Have you been to the emergency room or urgent care recently? NoDo you have any significant previous hospital stays, injuries, or treatment? No Home Safety:Is the tub or shower floor slippery and do you need support? NoDo you need some support when you get in and out of the tub or from the toilet? NoDo you have any small rugs or runners that slide or bunch up when you push them with your foot? NoAre there papers, books, towels, shoes, magazines, boxes, blankets, or other objects on the floor? No The patient does have a history of falls. No falls this year. Oral Health: every 4 monthsEye Health: every 9-12 months (macular degeneration)Motor Vehicle: Yes Do you wear a seatbelt when in a car? Yes Screening Tools:Were there any ADL or IADL deficiencies not linked to physical limitations? NoDuring the past 12 months, have you experienced confusion or memory loss that is happening more often or is getting worse? No LOLA MENDEZ MD [facility] [address], [address], [facility] 02/12/2023 16:25:07 08/14/2023 text/html Selina Duke is a 73 year old F who presented to the clinic for follow-up on chronic conditions. Pt's daughters feel like patient's asthma is not under good control. LOLA MENDEZ MD [address], [address], [facility] 08/14/2023 14:03:24 02/15/2024 text/html Medicare Annual Wellness VisitReported bypatient.Diet and Nutrition:healthy diet; discussed vitamin and supplement use Fracture Risk:history of fractures Physical Activity:discussed exercise habits; [facility] Depression Risk:never feels sad, empty, or tearful; no loss of interest in activities; no loss of energy Orientation:no disorientation to time; no disorientation to date; no disorientation to place Concentration and Memory:no decreased concentrating ability; no memory lapses or loss;forgetting words Speech/Motor difficulties:no speech difficulties; no difficulty expressing formulated concepts; no difficulty with fine manipulative tasks; no difficulty writing/copying; no slowed reaction time; does not knock things over when trying to pick them up Hearing:no loss of hearing Vision:no vision problems Activities of Daily Living:able to bathe with limited or no assistance; able to contol urination and bowels; able to dress with limited or no assistance; able to feed self with limited or no assistance; able to get out of chair or bed with limited or no assistance; able to groom with limited or no assistance; able to toilet with limited or no assistance Instrumental Activities of Daily Living:able to do house work with limited or no assistance; able to grocery shop with limited or no assistance; able to manage medications with limited or no assistance; able to manage money with limited or no assistance; able to prepare meals with limited or no assistance; able to use the phone with limited or no assistance Falls Risk Assessment:no frequent falls while walking; no fall in the past year; no fall since last visit; no dizziness/vertigo Home Safety:no unsafe bimal hazzards; no unsafe stairs; use of seatbelts; has hand bars in the bathroom/shower; good lighting in the home Selina Duke is a 72 year old F who presented to the clinic for her medicare examination. Pt presents with her daughter. Pt mentions she has a lot of aches and pains especially in her knees and hips. Visit Type: Annual How would you rate your health? Good Have you been discharged from the hospital recently? NoHave you been to the emergency room or urgent care recently? NoDo you have any significant previous hospital stays, injuries, or treatment? No Home Safety:Is the tub or shower floor slippery and do you need support? NoDo you need some support when you get in and out of the tub or from the toilet? NoDo you have any small rugs or runners that slide or bunch up when you push them with your foot? NoAre there papers, books, towels, shoes, magazines, boxes, blankets, or other objects on the floor? No The patient does have a history of falls. One fall this year [facility]. Oral Health: every 4 monthsEye Health: every 9-12 months (macular degeneration, slightly worse on the right side)Motor Vehicle: Yes Do you wear a seatbelt when in a car? Yes Screening Tools:Were there any ADL or IADL deficiencies not linked to physical limitations? NoDuring the past 12 months, have you experienced confusion or memory loss that is happening more often or is getting worse? No Yu laguerre, [facility] 02/19/2024 13:32:23 04/13/2024 text/html Selina is a [age]yr old F with PMHx of HTN, hypothyroidism presents for pre-operative medical clearance for cataract surgery of the left eye on 05/04/[address] José Luis Rincon ( ). Under topical anesthesia. Denies any acute complaints at this time. Has known allergies to penicillins, percocet, and advair diskus. Has tolerated anesthesia in the past without complications. The patient does not follow w/ Cardiology and notes that she can walk multiple blocks and has no limitations with going up multiple flights of stairs before becoming symptomatic METS score ~ > 4. The patient currently denies chest pain, shortness of breath, palpitations, fever, chills, and nausea/vomiting. TD PERKINS [address] [address], [place], [address], [facility] 04/13/2024 11:12:32 08/18/2024 text/html Selina Duke is a 73 year old F who presented to the clinic for follow-up on chronic conditions. Pt's has no new complaints. Updates:> has not yet seen [facility] psychiatry yet, has appoitment in November> continues to have chronic pain in the bilateral knees, hips and feet> stable on current asthma regimen> was started on topiramate for tremors, has noticed improvement LOLA MENDEZ MD [address] [facility] [address], [place], [address], [facility] 08/18/2024 14:16:47 OBGyn Episode No OBEpisode recorded.
== END 2025-02-01 11:38 | disposition home or self-care (01) ==
LOC: HO.HSM 11:10
PROVIDERS: PCP Student in an Organized Health Care Education/Training Program; Visit Provider Registered Nurse
DX: G25.0 Essential tremor (principal); S06.0X0A Concussion without loss of consciousness, initial encounter
CPT/HCPCS: 99214

== ENCOUNTER → 2025-02-01 11:09 | Outpatient (BNVA) | payer MEDICARE, OTHER, SELFPAY | PROVIDERS: PCP Student in an Organized Health Care Education/Training Program; Visit Provider Registered Nurse | DX: S06.0X0A Concussion without loss of consciousness, initial encounter (principal); G25.0 Essential tremor | CPT/HCPCS: 99212 ==

== ENCOUNTER 2025-02-25 08:13 | Outpatient (REF) | payer MEDICARE, OTHER, SELFPAY ==
--- NOTE | ~2025-02-25 | CT_ITS ---
CLINICAL HISTORY: S06.0X0A - Concussion without loss of consciousness, initial encounter CT head without contrast Comparison: None provided Findings: No intra-axial mass, midline shift, hydrocephalus, or acute hemorrhage. No significant atrophy-like change or white matter disease. There is no sinus or mastoid fluid. The orbits are within normal limits. There is no acute fracture. IMPRESSION: 1. No acute intracranial findings specifically, no acute intracranial hemorrhage. This document has been electronically signed by: Thalia Ordonez MD on 02/27/2025 22:57:12
== END 2025-02-25 08:14 | disposition home or self-care (01) ==
LOC: HO.CT 08:13
PROVIDERS: PCP Student in an Organized Health Care Education/Training Program; Visit Provider Registered Nurse
DX: S06.0X0A Concussion without loss of consciousness, initial encounter (principal)
CPT/HCPCS: 70450

== ENCOUNTER → 2025-02-25 08:30 | Outpatient (BNV) | payer MEDICARE, OTHER, SELFPAY | PROVIDERS: PCP Student in an Organized Health Care Education/Training Program; Visit Provider Student in an Organized Health Care Education/Training Program | DX: S06.0X0A Concussion without loss of consciousness, initial encounter (principal) | CPT/HCPCS: 70450 ==